=== PATIENT | male | born 1940 | race Caucasian/White ===

== ENCOUNTER 2022-03-20 08:47 | Inpatient (IN) | payer MEDICARE, OTHER ==
[2022-03-20] MEDS ORDERED: Iopamidol 370 76% 100 ML VIAL ONE (08:55)
[2022-03-20] MEDS ORDERED: Morphine 4 MG/ML VIAL ONE (09:15)
[2022-03-20] MEDS ORDERED: Magnesium 2 GM/50 ML BAG (IN WATER) ONE (09:15)
[2022-03-20] MEDS ORDERED: Nitroglycerin 2% Ointment 1 INCH/1 GM Packet ONE (09:15)
[2022-03-20 09:29] LABS: #Lymphocytes 0.5 thou/uL (1.20-3.40); #Monocytes 1.5 thou/uL (0.11-0.59); #Neutrophils 17.5 thou/uL (1.40-6.50); %Basophils 0.2 % (0.0-1.0); %Eosinophils 0.1 % (0.0-10.0); %Lymphocytes 2.5 % (21.0-51.0); %Monocytes 7.6 % (0.0-10.0); %Neutrophils 89.7 % (42.0-75.0); Mean Platelet Volume 8.9 fL (7.4-10.4); Platelet Count 200 thou/uL (130-400); RBC Distribution Width 11.9 % (11.5-14.5); White Blood Cell (WBC) Count 19.5 thou/uL (4.8-10.8)
[2022-03-20] MEDS ORDERED: Diltiazem HCl 0 ML ONE (10:08)
[2022-03-20] MEDS ORDERED: Esmolol 2,500 MG/250 ML 250 ML ONE (10:34)
[2022-03-20 10:55] LABS: ALT (SGPT) 15 U/L (8-55); AST (SGOT) 15 U/L (5-34); Albumin 4.4 g/dL (3.4-4.8); Alkaline Phosphatase 88 U/L (40-110); Anion Gap 20 mmol/L (10-20); BUN (Urea Nitrogen) 16 mg/dL (8.4-25.7); Bilirubin, Total 1.4 mg/dL (0.2-1.2); Calc. Creatinine Clearance 0 mL/min (70-130); Calcium 9.6 mg/dL (7.8-10.44); Carbon Dioxide 23 mmol/L (23-31); Chloride 97 mmol/L (98-107); Globulin 2.6 g/dL (2.4-3.5); Glucose 186 mg/dL (83-110); Lipase 8 U/L (8-78); Potassium 4.2 mmol/L (3.5-5.1); Sodium 136 mmol/L (136-145)
[2022-03-20] MEDS ORDERED: Ondansetron PF 4 MG/2 ML Vial IVP PRN (11:26)
[2022-03-20] MEDS ORDERED: Fentanyl 100 MCG/2 ML VIAL ONE (11:35)
[2022-03-20] MEDS ORDERED: Dextrose 50% Abboject 50 ML SYRINGE SLOW IVP PRN (11:46)
[2022-03-20] MEDS ORDERED: HumaLOG 300 UNITS/3 ML VIAL SC PRN ×2 (11:46)
[2022-03-20] MEDS ORDERED: Dextrose 5% in Water 1,000 ML IV PRN (11:46)
[2022-03-20 12:10] LABS: Hemoglobin A1c 5.8 % (4.0-6.0)
[2022-03-20 12:28] LABS: Troponin I 0.018 ng/mL (< 0.028)
[2022-03-20] MEDS ORDERED: Enoxaparin Sodium 80 MG/0.8 ML SYRINGE ONE (13:20)
[2022-03-20 16:01] VITALS: BMI 24.3
[2022-03-20 16:49] LABS: Troponin I 0.012 ng/mL (< 0.028)
[2022-03-20 18:32] LABS: Bilirubin Negative (Negative); Blood, Urine Trace (Negative); Clarity Clear (Clear); Glucose, Urine (Dipstick) 70 mg/dL (Negative); Ketone, Urine Negative (Negative); Leukocyte Negative Leu/uL (Negative); Nitrite Negative (Negative); Protein, Urine (Dipstick) 30 mg/dL (Neg-Trace); Squamous Epithelial 0-3 HPF (0-3); Urobilinogen Normal mg/dL (Less than 2); WBC/HPF 0-3 HPF (0-3)
[2022-03-20 18:42] LABS: Bacteria/HPF Rare-Few HPF (None Seen); Specific Gravity, Urine Greater than 1.060 (1.002-1.036)
[2022-03-20 18:43] LABS: Urine Culture Reflex No No
[2022-03-20] MEDS: Atorvastatin Calcium 10 MG TAB PO SCH (21:28)
[2022-03-20] MEDS: Metoprolol Tartrate 25 MG TAB PO SCH (21:28)
[2022-03-20] MEDS: Senokot S 8.6-50 MG TAB PO SCH (21:28)
[2022-03-20] MEDS: Famotidine/PF 20 mg/2ml Vial SLOW IVP SCH (21:28)
[2022-03-20] MEDS: Enoxaparin Sodium 80 MG/0.8 ML SYRINGE SC SCH (21:29)
[2022-03-21 00:55] LABS: SARS-CoV-2 PCR by NAA Not Detected (NotDetected)
[2022-03-21 03:57] LABS: #Eosinphils 0.1 thou/uL (0.0-0.7); #Lymphocytes 1.3 thou/uL (1.20-3.40); #Monocytes 1.3 thou/uL (0.11-0.59); #Neutrophils 6.5 thou/uL (1.40-6.50); %Basophils 0.3 % (0.0-1.0); %Eosinophils 0.5 % (0.0-10.0); %Monocytes 14.6 % (0.0-10.0); %Neutrophils 70.6 % (42.0-75.0); Hemoglobin 13.7 g/dL (14.0-18.0); Mean Corpuscular HGB CONC 34.2 g/dL (32.0-36.0); Mean Corpuscular Hemoglobin 34.4 pg (27.0-31.0); Mean Platelet Volume 9.1 fL (7.4-10.4); Platelet Count 145 thou/uL (130-400); Red Blood Cell (RBC) Count 3.99 mill/uL (4.70-6.10); White Blood Cell (WBC) Count 9.2 thou/uL (4.8-10.8)
[2022-03-21 04:08] LABS: ALT (SGPT) 18 U/L (8-55); AST (SGOT) 15 U/L (5-34); Albumin 3.3 g/dL (3.4-4.8); Alkaline Phosphatase 61 U/L (40-110); Anion Gap 9 mmol/L (10-20); BUN (Urea Nitrogen) 20 mg/dL (8.4-25.7); Bilirubin, Direct 0.5 mg/dL (0.1-0.3); Bilirubin, Total 1.2 mg/dL (0.2-1.2); Calc. Creatinine Clearance 64 mL/min (70-130); Calcium 8.6 mg/dL (7.8-10.44); Carbon Dioxide 29 mmol/L (23-31); Cardiac Risk 1.8 (Less than 4.5); Chloride 100 mmol/L (98-107); Cholesterol 102 mg/dl (< 200 Desired); Glucose 106 mg/dL (83-110); HDL Cholesterol 58 mg/dL (>60 Neg Risk); LDL Cholesterol, Calculated 37 mg/dL; Magnesium 2.2 mg/dL (1.6-2.6); Potassium 3.6 mmol/L (3.5-5.1); Protein, Total 5.4 g/dL (5.8-8.1); Sodium 134 mmol/L (136-145); Triglycerides 35 mg/dL (Less than 150)
[2022-03-21] MEDS: Polyethylene Glycol 3350 17 GM Packet PO SCH (09:13)
[2022-03-21] MEDS: Famotidine/PF 20 mg/2ml Vial SLOW IVP SCH ×2 (09:20→21:41)
[2022-03-21] MEDS: Aspirin Chewable 81 MG TAB PO SCH (09:20)
[2022-03-21] MEDS: Enoxaparin Sodium 80 MG/0.8 ML SYRINGE SC SCH ×2 (09:21→21:41)
[2022-03-21] MEDS: Metoprolol Tartrate 25 MG TAB PO SCH ×2 (09:21→21:41)
[2022-03-21] MEDS: Senokot S 8.6-50 MG TAB PO SCH ×2 (09:21→21:41)
[2022-03-21] MEDS ORDERED: Dronedarone HCl 400 MG TAB PO SCH ×2 (10:00→17:00)
[2022-03-21] MEDS ORDERED: Digoxin 0.5 MG/2 ML AMP SLOW IVP SCH ×2 (11:30→17:45)
[2022-03-21] MEDS ORDERED: Amiodarone 450 MG in Dextrose 5% in Water 250 ML IVPB SCH (11:30)
[2022-03-21] MEDS ORDERED: Amiodarone 150 MG in Dextrose 5% in Water 100 ML IVPB SCH (11:30)
[2022-03-21] MEDS ORDERED: Amiodarone 150 MG, Admixture Fee 1 EACH in Dextrose 5% in Water 100 ML IVPB SCH (14:30)
[2022-03-21] MEDS: Amiodarone In Dextrose 200 ML IVPB SCH ×2 (16:02→22:03)
[2022-03-21] MEDS ORDERED: Potassium Chloride 20 MEQ TAB PO SCH (18:45)
[2022-03-21] MEDS: Colchicine 0.6 MG TAB PO SCH (21:41)
[2022-03-21] MEDS: Atorvastatin Calcium 10 MG TAB PO SCH (21:41)
[2022-03-22 03:54] LABS: #Lymphocytes 0.9 thou/uL (1.20-3.40); #Monocytes 1.2 thou/uL (0.11-0.59); %Eosinophils 0.4 % (0.0-10.0); %Lymphocytes 10.9 % (21.0-51.0); %Monocytes 14.6 % (0.0-10.0); %Neutrophils 74.1 % (42.0-75.0); Hemoglobin 13.9 g/dL (14.0-18.0); Mean Corpuscular HGB CONC 33.6 g/dL (32.0-36.0); Mean Corpuscular Hemoglobin 33.5 pg (27.0-31.0); Mean Corpuscular Volume 99.6 fL (78.0-98.0); Mean Platelet Volume 8.8 fL (7.4-10.4); Platelet Count 131 thou/uL (130-400); RBC Distribution Width 11.9 % (11.5-14.5); Red Blood Cell (RBC) Count 4.13 mill/uL (4.70-6.10); White Blood Cell (WBC) Count 8.1 thou/uL (4.8-10.8)
[2022-03-22 04:26] LABS: Anion Gap 12 mmol/L (10-20); BUN (Urea Nitrogen) 17 mg/dL (8.4-25.7); Calc. Creatinine Clearance 61 mL/min (70-130); Calcium 8.6 mg/dL (7.8-10.44); Carbon Dioxide 25 mmol/L (23-31); Chloride 99 mmol/L (98-107); Glucose 138 mg/dL (83-110); Magnesium 2.3 mg/dL (1.6-2.6); Potassium 4.3 mmol/L (3.5-5.1); Sodium 132 mmol/L (136-145)
[2022-03-22 06:35] LABS: Digoxin 1.11 ng/mL (0.8-2.0)
[2022-03-22] MEDS: Budesonide 0.5 MG/2 ML NEB NEB SCH ×2 (07:09→18:22)
[2022-03-22] MEDS: Senokot S 8.6-50 MG TAB PO SCH ×2 (08:42→20:27)
[2022-03-22] MEDS: predniSONE 20 MG TAB PO SCH (08:42)
[2022-03-22] MEDS: Digoxin 0.125 MG TAB PO SCH (08:42)
[2022-03-22] MEDS: Famotidine/PF 20 mg/2ml Vial SLOW IVP SCH ×2 (08:48→20:27)
[2022-03-22] MEDS: Enoxaparin Sodium 80 MG/0.8 ML SYRINGE SC SCH (08:48)
[2022-03-22] MEDS: Metoprolol Tartrate 25 MG TAB PO SCH ×2 (08:48→20:27)
[2022-03-22] MEDS: Polyethylene Glycol 3350 17 GM Packet PO SCH (08:48)
[2022-03-22] MEDS: Aspirin Chewable 81 MG TAB PO SCH (08:48)
[2022-03-22] MEDS: Colchicine 0.6 MG TAB PO SCH ×2 (08:48→20:27)
[2022-03-22] MEDS ORDERED: CATH Communication Order-Pharmacy FS SCH (17:00)
[2022-03-22] MEDS: Amiodarone In Dextrose 200 ML IVPB SCH (20:11)
[2022-03-22] MEDS: Atorvastatin Calcium 10 MG TAB PO SCH (20:27)
[2022-03-23 03:28] LABS: #Eosinphils 0.1 thou/uL (0.0-0.7); #Lymphocytes 1.1 thou/uL (1.20-3.40); #Monocytes 0.9 thou/uL (0.11-0.59); #Neutrophils 5.1 thou/uL (1.40-6.50); %Basophils 0.2 % (0.0-1.0); %Eosinophils 0.8 % (0.0-10.0); %Lymphocytes 15.7 % (21.0-51.0); %Monocytes 12.1 % (0.0-10.0); %Neutrophils 71.1 % (42.0-75.0); Hemoglobin 13.3 g/dL (14.0-18.0); Mean Corpuscular HGB CONC 33.5 g/dL (32.0-36.0); Mean Corpuscular Hemoglobin 33.4 pg (27.0-31.0); Mean Corpuscular Volume 99.9 fL (78.0-98.0); Mean Platelet Volume 8.7 fL (7.4-10.4); Platelet Count 136 thou/uL (130-400); RBC Distribution Width 11.8 % (11.5-14.5); Red Blood Cell (RBC) Count 3.98 mill/uL (4.70-6.10); White Blood Cell (WBC) Count 7.2 thou/uL (4.8-10.8)
[2022-03-23 03:48] LABS: Anion Gap 13 mmol/L (10-20); BUN (Urea Nitrogen) 10 mg/dL (8.4-25.7); Calc. Creatinine Clearance 75 mL/min (70-130); Calcium 8.2 mg/dL (7.8-10.44); Carbon Dioxide 25 mmol/L (23-31); Chloride 101 mmol/L (98-107); Glucose 119 mg/dL (83-110); Magnesium 2.2 mg/dL (1.6-2.6); Potassium 3.5 mmol/L (3.5-5.1); Sodium 135 mmol/L (136-145)
[2022-03-23] MEDS ORDERED: Sodium Chloride 0.9% 1,000 ML IV SCH ×2 (06:00→12:28)
[2022-03-23] MEDS: Budesonide 0.5 MG/2 ML NEB NEB SCH ×2 (06:15→18:21)
[2022-03-23] MEDS: Metoprolol Tartrate 25 MG TAB PO SCH (07:29)
[2022-03-23] MEDS: Digoxin 0.125 MG TAB PO SCH (10:26)
[2022-03-23] MEDS ORDERED: Heparin 10,000 UNITS/ 10 ML VIAL ONE (11:47)
[2022-03-23] MEDS ORDERED: Fentanyl 100 MCG/2 ML VIAL ONE (11:48)
[2022-03-23] MEDS ORDERED: Midazolam HCl 2 mg/2 ml Vial ONE (11:48)
[2022-03-23] MEDS ORDERED: Metoprolol Tartrate 5 MG/5 ML VIAL ONE (11:56)
[2022-03-23] MEDS ORDERED: Diltiazem 125 MG/25 ML ONE (11:57)
[2022-03-23] MEDS ORDERED: Protamine Sulfate 50 MG/5 ML VIAL ONE (12:08)
[2022-03-23] MEDS ORDERED: Sodium Chloride 0.9% 200 ML IV PRN (12:26)
[2022-03-23] MEDS ORDERED: Acetaminophen/Codeine 30-300mg Tablet PO PRN ×2 (12:26)
[2022-03-23] MEDS ORDERED: Nitroglycerin 0.4 MG TAB (25 Tab Bottle) SL PRN (12:26)
[2022-03-23] MEDS ORDERED: Acetaminophen 325 MG TAB PO PRN (12:27)
[2022-03-23] MEDS ORDERED: Diltiazem 125 MG in Sodium Chloride 0.9% 100 ML IVPB SCH (12:30)
[2022-03-23] MEDS ORDERED: Diltiazem HCl 125 MG in Premix Bag 1 BAG IVPB SCH (13:15)
[2022-03-23] MEDS: Famotidine/PF 20 mg/2ml Vial SLOW IVP SCH ×2 (13:54→20:27)
[2022-03-23] MEDS: Colchicine 0.6 MG TAB PO SCH ×2 (13:55→20:27)
[2022-03-23] MEDS: predniSONE 20 MG TAB PO SCH (13:55)
[2022-03-23] MEDS: Senokot S 8.6-50 MG TAB PO SCH ×2 (13:55→20:27)
[2022-03-23] MEDS: Polyethylene Glycol 3350 17 GM Packet PO SCH (13:55)
[2022-03-23] MEDS: Aspirin Chewable 81 MG TAB PO SCH (13:55)
[2022-03-23] MEDS ORDERED: Iopamidol 370 76% 100 ML VIAL ONE (14:32)
[2022-03-23] MEDS ORDERED: Iopamidol 370 76% 50 ML VIAL FS ONE (14:32)
[2022-03-23] MEDS: Potassium Chloride 20 MEQ in Premix Bag 1 BAG IVPB SCH ×2 (17:16→19:02)
[2022-03-23] MEDS: Amiodarone In Dextrose 200 ML IVPB SCH (20:26)
[2022-03-23] MEDS: Atorvastatin Calcium 10 MG TAB PO SCH (20:27)
[2022-03-23] MEDS ORDERED: Furosemide 40 MG/4 ML VIAL SLOW IVP SCH (21:30)
[2022-03-23] MEDS ORDERED: methylPREDNISolone Sod Succ/PF 125 MG/2 ML VIAL IVP SCH (22:45)
[2022-03-24 04:01] LABS: #Lymphocytes 0.2 thou/uL (1.20-3.40); #Monocytes 0.3 thou/uL (0.11-0.59); #Neutrophils 7.6 thou/uL (1.40-6.50); %Basophils 0.4 % (0.0-1.0); %Eosinophils 0.1 % (0.0-10.0); %Lymphocytes 2.9 % (21.0-51.0); %Monocytes 3.2 % (0.0-10.0); %Neutrophils 93.3 % (42.0-75.0); Hemoglobin 15.6 g/dL (14.0-18.0); Mean Corpuscular HGB CONC 32.5 g/dL (32.0-36.0); Mean Corpuscular Hemoglobin 32.8 pg (27.0-31.0); Mean Platelet Volume 8.4 fL (7.4-10.4); Platelet Count 188 thou/uL (130-400); Red Blood Cell (RBC) Count 4.74 mill/uL (4.70-6.10); White Blood Cell (WBC) Count 8.1 thou/uL (4.8-10.8)
[2022-03-24 04:27] LABS: Anion Gap 15 mmol/L (10-20); BUN (Urea Nitrogen) 15 mg/dL (8.4-25.7); Calc. Creatinine Clearance 57 mL/min (70-130); Carbon Dioxide 27 mmol/L (23-31); Chloride 99 mmol/L (98-107); Glucose 222 mg/dL (83-110); Magnesium 2.1 mg/dL (1.6-2.6); Potassium 4.6 mmol/L (3.5-5.1); Sodium 136 mmol/L (136-145)
[2022-03-24 05:18] LABS: Digoxin 0.81 ng/mL (0.8-2.0)
[2022-03-24] MEDS: Budesonide 0.5 MG/2 ML NEB NEB SCH ×2 (07:10→19:29)
[2022-03-24] MEDS: Amiodarone 200 MG TAB PO SCH ×2 (08:59→20:54)
[2022-03-24] MEDS: Aspirin Chewable 81 MG TAB PO SCH (09:00)
[2022-03-24] MEDS: Apixaban 5 MG TAB PO SCH ×2 (09:00→20:53)
[2022-03-24] MEDS: Digoxin 0.125 MG TAB PO SCH (09:00)
[2022-03-24] MEDS: Colchicine 0.6 MG TAB PO SCH ×2 (09:00→20:54)
[2022-03-24] MEDS: Famotidine/PF 20 mg/2ml Vial SLOW IVP SCH ×2 (09:00→20:54)
[2022-03-24] MEDS: predniSONE 20 MG TAB PO SCH (09:01)
[2022-03-24] MEDS: Polyethylene Glycol 3350 17 GM Packet PO SCH (09:01)
[2022-03-24] MEDS: Senokot S 8.6-50 MG TAB PO SCH ×2 (09:02→20:55)
[2022-03-24] MEDS: Amiodarone In Dextrose 200 ML IVPB SCH (09:06)
[2022-03-24] MEDS ORDERED: Ketamine 50 MG/ML (10ML VIAL) ONE (11:39)
[2022-03-24] MEDS ORDERED: PROPOFOL 20 ML ONE (11:40)
[2022-03-24] MEDS: Carvedilol 3.125 MG TAB PO SCH (17:24)
[2022-03-24] MEDS: Atorvastatin Calcium 10 MG TAB PO SCH (20:54)
[2022-03-25 04:37] LABS: #Monocytes 1.1 thou/uL (0.11-0.59); #Neutrophils 8.1 thou/uL (1.40-6.50); %Basophils 0.1 % (0.0-1.0); %Eosinophils 0.2 % (0.0-10.0); %Lymphocytes 9.7 % (21.0-51.0); %Neutrophils 79.1 % (42.0-75.0); Hemoglobin 14.5 g/dL (14.0-18.0); Mean Corpuscular HGB CONC 33.6 g/dL (32.0-36.0); Mean Corpuscular Hemoglobin 33.4 pg (27.0-31.0); Mean Corpuscular Volume 99.5 fL (78.0-98.0); Mean Platelet Volume 8.5 fL (7.4-10.4); Platelet Count 178 thou/uL (130-400); RBC Distribution Width 11.6 % (11.5-14.5); Red Blood Cell (RBC) Count 4.36 mill/uL (4.70-6.10); White Blood Cell (WBC) Count 10.2 thou/uL (4.8-10.8)
[2022-03-25 04:58] LABS: Anion Gap 12 mmol/L (10-20); BUN (Urea Nitrogen) 18 mg/dL (8.4-25.7); Calc. Creatinine Clearance 61 mL/min (70-130); Calcium 8.6 mg/dL (7.8-10.44); Carbon Dioxide 28 mmol/L (23-31); Chloride 101 mmol/L (98-107); Glucose 143 mg/dL (83-110); Magnesium 2.1 mg/dL (1.6-2.6); Potassium 4.1 mmol/L (3.5-5.1); Sodium 137 mmol/L (136-145)
[2022-03-25] MEDS: Budesonide 0.5 MG/2 ML NEB NEB SCH ×2 (06:55→18:11)
[2022-03-25] MEDS: Colchicine 0.6 MG TAB PO SCH ×2 (08:38→22:28)
[2022-03-25] MEDS: Carvedilol 3.125 MG TAB PO SCH ×2 (08:38→17:00)
[2022-03-25] MEDS: Senokot S 8.6-50 MG TAB PO SCH ×2 (08:38→22:29)
[2022-03-25] MEDS: Furosemide 20 MG TAB PO SCH (08:38)
[2022-03-25] MEDS: Amiodarone 200 MG TAB PO SCH ×2 (08:39→22:27)
[2022-03-25] MEDS: Apixaban 5 MG TAB PO SCH ×2 (08:39→22:28)
[2022-03-25] MEDS: Aspirin Chewable 81 MG TAB PO SCH (08:39)
[2022-03-25] MEDS: predniSONE 20 MG TAB PO SCH (08:40)
[2022-03-25] MEDS: Famotidine/PF 20 mg/2ml Vial SLOW IVP SCH ×2 (08:40→22:28)
[2022-03-25] MEDS: Polyethylene Glycol 3350 17 GM Packet PO SCH (08:40)
[2022-03-25] MEDS ORDERED: Metoprolol Tartrate 5 MG/5 ML VIAL IVP SCH (09:45)
[2022-03-25] MEDS ORDERED: Digoxin 0.5 MG/2 ML AMP SLOW IVP SCH (10:00)
[2022-03-25] MEDS: Atorvastatin Calcium 10 MG TAB PO SCH (22:28)
[2022-03-26 05:08] LABS: #Lymphocytes 1.2 thou/uL (1.20-3.40); #Monocytes 1.2 thou/uL (0.11-0.59); #Neutrophils 6.5 thou/uL (1.40-6.50); %Basophils 0.1 % (0.0-1.0); %Eosinophils 0.4 % (0.0-10.0); %Lymphocytes 13.8 % (21.0-51.0); %Monocytes 13.2 % (0.0-10.0); %Neutrophils 72.5 % (42.0-75.0); Hemoglobin 14.8 g/dL (14.0-18.0); Mean Corpuscular HGB CONC 33.2 g/dL (32.0-36.0); Mean Corpuscular Hemoglobin 33.3 pg (27.0-31.0); Mean Platelet Volume 8.3 fL (7.4-10.4); Platelet Count 189 thou/uL (130-400); RBC Distribution Width 11.8 % (11.5-14.5); Red Blood Cell (RBC) Count 4.45 mill/uL (4.70-6.10)
[2022-03-26 05:14] LABS: Anion Gap 11 mmol/L (10-20); BUN (Urea Nitrogen) 21 mg/dL (8.4-25.7); Calc. Creatinine Clearance 60 mL/min (70-130); Calcium 8.1 mg/dL (7.8-10.44); Carbon Dioxide 28 mmol/L (23-31); Chloride 103 mmol/L (98-107); Glucose 172 mg/dL (83-110); Potassium 3.9 mmol/L (3.5-5.1); Sodium 138 mmol/L (136-145)
[2022-03-26] MEDS: Budesonide 0.5 MG/2 ML NEB NEB SCH (07:32)
[2022-03-26] MEDS ORDERED: Digoxin 0.125 MG TAB PO SCH (09:00)
[2022-03-26] MEDS: Furosemide 20 MG TAB PO SCH (10:03)
[2022-03-26] MEDS: Carvedilol 3.125 MG TAB PO SCH (10:03)
[2022-03-26] MEDS: Aspirin Chewable 81 MG TAB PO SCH (10:03)
[2022-03-26] MEDS: predniSONE 20 MG TAB PO SCH (10:03)
[2022-03-26] MEDS: Famotidine/PF 20 mg/2ml Vial SLOW IVP SCH (10:03)
[2022-03-26] MEDS: Polyethylene Glycol 3350 17 GM Packet PO SCH (10:04)
[2022-03-26] MEDS: Amiodarone 200 MG TAB PO SCH (10:04)
[2022-03-26] MEDS: Colchicine 0.6 MG TAB PO SCH (10:04)
[2022-03-26] MEDS: Apixaban 5 MG TAB PO SCH (10:04)
[2022-03-26] MEDS: Senokot S 8.6-50 MG TAB PO SCH (10:05)
[2022-03-26 11:36] VITALS: BP 177/83; TEMP 97.8
[2022-04-07] MEDS ORDERED: Amiodarone 200 MG TAB PO SCH (09:00)
[2022-04-21] MEDS ORDERED: Amiodarone 200 MG TAB PO SCH (09:00)
== END 2022-03-26 11:45 | disposition home or self-care (01) | DRG 286 ==
LOC: ERS 08:47 → IMCU/EMU 11:31 → 2NO 03-24 18:52
PROVIDERS: ADMIT Family Medicine; ATTEND Internal Medicine Geriatric Medicine
PROC: 5A2204Z Restoration of Cardiac Rhythm, Single (ICD-10-PCS; 2022-03-20)
PROC: 4A023N7 Measurement of Cardiac Sampling and Pressure, Left Heart, Percutaneous Approach (ICD-10-PCS; 2022-03-21)
PROC: B2111ZZ Fluoroscopy of Multiple Coronary Arteries using Low Osmolar Contrast (ICD-10-PCS; 2022-03-21)
PROC: B2151ZZ Fluoroscopy of Left Heart using Low Osmolar Contrast (ICD-10-PCS; 2022-03-21)
PROC: B24BZZ4 Ultrasonography of Heart with Aorta, Transesophageal (ICD-10-PCS; principal; 2022-03-24)
DX: I48.92 Unspecified atrial flutter (principal); I50.21 Acute systolic (congestive) heart failure; I13.0 Hypertensive heart and chronic kidney disease with heart failure and stage 1 through stage 4 chronic kidney disease, or unspecified chronic kidney disease; E87.1 Hypo-osmolality and hyponatremia; I42.8 Other cardiomyopathies; I25.10 Atherosclerotic heart disease of native coronary artery without angina pectoris; I48.91 Unspecified atrial fibrillation; E04.1 Nontoxic single thyroid nodule; E78.00 Pure hypercholesterolemia, unspecified; I25.5 Ischemic cardiomyopathy; I95.9 Hypotension, unspecified; N18.30 Chronic kidney disease, stage 3 unspecified; N40.0 Benign prostatic hyperplasia without lower urinary tract symptoms; F17.210 Nicotine dependence, cigarettes, uncomplicated; J43.9 Emphysema, unspecified; D72.829 Elevated white blood cell count, unspecified; E11.22 Type 2 diabetes mellitus with diabetic chronic kidney disease; I08.3 Combined rheumatic disorders of mitral, aortic and tricuspid valves; K76.1 Chronic passive congestion of liver; Z20.822 Contact with and (suspected) exposure to COVID-19; Z71.6 Tobacco abuse counseling; Z72.89 Other problems related to lifestyle; Z79.899 Other long term (current) drug therapy; Z79.84 Long term (current) use of oral hypoglycemic drugs; Z79.01 Long term (current) use of anticoagulants; Z79.82 Long term (current) use of aspirin
CPT/HCPCS: 36415; 36416; 71045; 71275; 74174; 78451; 80048; 80053; 80061; 80076; 80162; 81001; 83036; 83605; 83690; 83735; 83880; 84443; 84484; 85025; 85347; 85379; 87040; 92960; 93005; 93010; 93306; 93312; 93458; 94640; 94660; 94760; 96365; 96367; 96372; 96375; 97139; 99152; A9500; J0282; J1160; J1644; J1650; J1815; J1940; J2250; J2270; J2704; J2720; J2930; J3010; J3475; J3480; J7050; J7070; J7512; J7620; J7626; Q9967; S0028; U0003; U0005

== ENCOUNTER 2022-04-07 13:28 | Inpatient (IN) | payer OTHER ==
[~2022-04-07 13:28] MED LIST: Iopamidol-370 76% 500 ML 1 ML ONE
[2022-04-07 14:10] LABS: #Eosinphils 0.1 thou/uL (0.0-0.7); #Lymphocytes 1.1 thou/uL (1.20-3.40); #Monocytes 0.8 thou/uL (0.11-0.59); #Neutrophils 8.4 thou/uL (1.40-6.50); %Basophils 0.3 % (0.0-1.0); %Eosinophils 0.6 % (0.0-10.0); %Lymphocytes 10.3 % (21.0-51.0); %Monocytes 7.7 % (0.0-10.0); Hemoglobin 14.6 g/dL (14.0-18.0); Mean Corpuscular HGB CONC 32.9 g/dL (32.0-36.0); Mean Corpuscular Hemoglobin 33.4 pg (27.0-31.0); Mean Platelet Volume 8.9 fL (7.4-10.4); Platelet Count 189 thou/uL (130-400); RBC Distribution Width 12.1 % (11.5-14.5); Red Blood Cell (RBC) Count 4.37 mill/uL (4.70-6.10); White Blood Cell (WBC) Count 10.4 thou/uL (4.8-10.8)
[2022-04-07 14:25] LABS: ALT (SGPT) 16 U/L (8-55); AST (SGOT) 16 U/L (5-34); Albumin 3.3 g/dL (3.4-4.8); Alkaline Phosphatase 94 U/L (40-110); Anion Gap 12 mmol/L (10-20); BUN (Urea Nitrogen) 14 mg/dL (8.4-25.7); Calc. Creatinine Clearance 0 mL/min (70-130); Calcium 8.5 mg/dL (7.8-10.44); Carbon Dioxide 36 mmol/L (23-31); Chloride 96 mmol/L (98-107); Globulin 1.9 g/dL (2.4-3.5); Glucose 139 mg/dL (83-110); Potassium 3.3 mmol/L (3.5-5.1); Protein, Total 5.2 g/dL (5.8-8.1); Sodium 141 mmol/L (136-145)
[2022-04-07] MEDS ORDERED: Potassium Chloride 20 MEQ TAB ONE (14:35)
[2022-04-07] MEDS ORDERED: Amiodarone 200 MG TAB PO SCH (14:45)
[2022-04-07 14:46] LABS: CKMB 3.4 ng/mL (0-6.6)
[2022-04-07] MEDS ORDERED: Apixaban 5 MG TAB PO SCH (15:45)
[2022-04-07] MEDS ORDERED: Furosemide 20 MG/2 ML VIAL ONE (16:36)
[2022-04-07] MEDS ORDERED: Calcium Carbonate 500 MG ChewTAB PO PRN (18:24)
[2022-04-07] MEDS ORDERED: Senokot S 8.6-50 MG TAB PO PRN (18:24)
[2022-04-07] MEDS ORDERED: Acetaminophen 325 MG TAB PO PRN (18:24)
[2022-04-07] MEDS ORDERED: Albuterol 200 PUFF (6.7GM INHALER) INH PRN (18:41)
[2022-04-07 23:09] VITALS: BMI 23.8
[2022-04-08 04:07] LABS: #Basophils 0.1 thou/uL (0.0-0.2); #Eosinphils 0.1 thou/uL (0.0-0.7); #Lymphocytes 1.2 thou/uL (1.20-3.40); #Monocytes 0.8 thou/uL (0.11-0.59); #Neutrophils 7.6 thou/uL (1.40-6.50); %Basophils 0.5 % (0.0-1.0); %Eosinophils 1.2 % (0.0-10.0); %Lymphocytes 12.5 % (21.0-51.0); %Monocytes 7.7 % (0.0-10.0); %Neutrophils 78.1 % (42.0-75.0); Hemoglobin 13.7 g/dL (14.0-18.0); Mean Corpuscular HGB CONC 34.6 g/dL (32.0-36.0); Mean Corpuscular Hemoglobin 33.8 pg (27.0-31.0); Mean Corpuscular Volume 97.8 fL (78.0-98.0); Mean Platelet Volume 8.3 fL (7.4-10.4); Platelet Count 184 thou/uL (130-400); RBC Distribution Width 12.3 % (11.5-14.5); Red Blood Cell (RBC) Count 4.06 mill/uL (4.70-6.10); White Blood Cell (WBC) Count 9.7 thou/uL (4.8-10.8)
[2022-04-08 04:16] LABS: Anion Gap 11 mmol/L (10-20); BUN (Urea Nitrogen) 14 mg/dL (8.4-25.7); Calc. Creatinine Clearance 59 mL/min (70-130); Calcium 8.4 mg/dL (7.8-10.44); Carbon Dioxide 35 mmol/L (23-31); Chloride 98 mmol/L (98-107); Glucose 146 mg/dL (83-110); Potassium 3.2 mmol/L (3.5-5.1); Sodium 141 mmol/L (136-145)
[2022-04-08 04:21] LABS: Troponin I 0.048 ng/mL (< 0.028)
[2022-04-08] MEDS: Furosemide 20 MG/2 ML VIAL SLOW IVP SCH ×2 (05:22→15:23)
[2022-04-08] MEDS: Mometasone 200 MCG/Formoterol 5 MCG 120 PUFF INHALER INH SCH ×2 (07:03→18:32)
[2022-04-08] MEDS ORDERED: Electrolyte Replacement Protocol 1 EACH FS SCH (08:15)
[2022-04-08] MEDS ORDERED: Potassium Chloride 20 MEQ TAB PO SCH ×2 (08:15→09:15)
[2022-04-08 08:35] LABS: Troponin I 0.046 ng/mL (< 0.028)
[2022-04-08] MEDS ORDERED: Magnesium 2 GM/50 ML(in water) 2 GM in Premix Bag 1 BAG IVPB SCH (09:15)
[2022-04-08] MEDS: Apixaban 5 MG TAB PO SCH ×2 (10:17→21:25)
[2022-04-08] MEDS: Amiodarone 200 MG TAB PO SCH (10:18)
[2022-04-08 14:34] LABS: Potassium 3.7 mmol/L (3.5-5.1)
[2022-04-09] MEDS: Furosemide 20 MG/2 ML VIAL SLOW IVP SCH ×2 (05:24→13:49)
[2022-04-09 05:32] LABS: Anion Gap 10 mmol/L (10-20); BUN (Urea Nitrogen) 12 mg/dL (8.4-25.7); Calc. Creatinine Clearance 66 mL/min (70-130); Calcium 8.6 mg/dL (7.8-10.44); Carbon Dioxide 36 mmol/L (23-31); Chloride 97 mmol/L (98-107); Glucose 131 mg/dL (83-110); Magnesium 2.1 mg/dL (1.6-2.6); Potassium 3.2 mmol/L (3.5-5.1); Sodium 140 mmol/L (136-145)
[2022-04-09] MEDS: Mometasone 200 MCG/Formoterol 5 MCG 120 PUFF INHALER INH SCH ×2 (06:53→18:16)
[2022-04-09] MEDS ORDERED: Potassium Chloride 20 MEQ TAB PO SCH (08:00)
[2022-04-09] MEDS: Apixaban 5 MG TAB PO SCH ×2 (08:15→19:49)
[2022-04-09] MEDS: Amiodarone 200 MG TAB PO SCH (08:16)
[2022-04-10 05:30] LABS: #Basophils 0.1 thou/uL (0.0-0.2); #Eosinphils 0.1 thou/uL (0.0-0.7); #Lymphocytes 1.5 thou/uL (1.20-3.40); #Monocytes 0.8 thou/uL (0.11-0.59); %Basophils 0.6 % (0.0-1.0); %Eosinophils 1.7 % (0.0-10.0); %Lymphocytes 18.1 % (21.0-51.0); %Monocytes 9.5 % (0.0-10.0); %Neutrophils 70.2 % (42.0-75.0); Hemoglobin 14.3 g/dL (14.0-18.0); Mean Corpuscular HGB CONC 32.3 g/dL (32.0-36.0); Mean Corpuscular Hemoglobin 32.8 pg (27.0-31.0); Mean Platelet Volume 8.4 fL (7.4-10.4); Platelet Count 184 thou/uL (130-400); RBC Distribution Width 12.1 % (11.5-14.5); Red Blood Cell (RBC) Count 4.38 mill/uL (4.70-6.10); White Blood Cell (WBC) Count 8.5 thou/uL (4.8-10.8)
[2022-04-10 05:54] LABS: Anion Gap 10 mmol/L (10-20); BUN (Urea Nitrogen) 12 mg/dL (8.4-25.7); Calc. Creatinine Clearance 57 mL/min (70-130); Calcium 8.6 mg/dL (7.8-10.44); Carbon Dioxide 37 mmol/L (23-31); Chloride 96 mmol/L (98-107); Glucose 114 mg/dL (83-110); Potassium 3.2 mmol/L (3.5-5.1); Sodium 140 mmol/L (136-145)
[2022-04-10] MEDS: Furosemide 20 MG/2 ML VIAL SLOW IVP SCH ×2 (05:59→13:37)
[2022-04-10] MEDS: Mometasone 200 MCG/Formoterol 5 MCG 120 PUFF INHALER INH SCH ×2 (07:26→18:30)
[2022-04-10] MEDS ORDERED: Potassium Chloride 20 MEQ TAB PO SCH ×2 (08:00→17:00)
[2022-04-10] MEDS: Amiodarone 200 MG TAB PO SCH (08:46)
[2022-04-10] MEDS: Apixaban 5 MG TAB PO SCH ×2 (08:46→09:27)
[2022-04-10] MEDS ORDERED: Enoxaparin Sodium 80 MG/0.8 ML SYRINGE SC SCH (18:00)
[2022-04-11 05:51] LABS: Anion Gap 14 mmol/L (10-20); BUN (Urea Nitrogen) 14 mg/dL (8.4-25.7); Calc. Creatinine Clearance 52 mL/min (70-130); Calcium 8.2 mg/dL (7.8-10.44); Carbon Dioxide 33 mmol/L (23-31); Chloride 96 mmol/L (98-107); Glucose 120 mg/dL (83-110); Magnesium 1.8 mg/dL (1.6-2.6); Potassium 3.7 mmol/L (3.5-5.1); Sodium 139 mmol/L (136-145)
[2022-04-11] MEDS: Mometasone 200 MCG/Formoterol 5 MCG 120 PUFF INHALER INH SCH (07:08)
[2022-04-11] MEDS ORDERED: Magnesium 2 GM/50 ML(in water) 2 GM in Premix Bag 1 BAG IVPB SCH (08:00)
[2022-04-11] MEDS ORDERED: Carvedilol 3.125 MG TAB PO SCH (08:00)
[2022-04-11] MEDS: Amiodarone 200 MG TAB PO SCH (08:19)
[2022-04-11] MEDS ORDERED: Heparin 10,000 UNITS/ 10 ML VIAL ONE (09:38)
[2022-04-11] MEDS ORDERED: Protamine Sulfate 50 MG/5 ML VIAL ONE (09:38)
[2022-04-11] MEDS ORDERED: Lidocaine 1% (PF) 30 ML VIAL ONE (09:45)
[2022-04-11] MEDS ORDERED: Fentanyl 100 MCG/2 ML VIAL ONE (10:10)
[2022-04-11] MEDS ORDERED: Rocuronium Bromide 10 MG/ML (10ML VIAL) ONE (10:15)
[2022-04-11] MEDS ORDERED: PHENYLEPHRINE-NS 100 MCG/ML 10 ML SYRINGE ONE (10:15)
[2022-04-11] MEDS ORDERED: Ondansetron PF 4 MG/2 ML Vial ONE (10:15)
[2022-04-11] MEDS ORDERED: Glycopyrrolate 0.2 MG/ML 5 ML SYRINGE ONE (10:15)
[2022-04-11] MEDS ORDERED: Ketorolac Tromethamine 30 MG/ML VIAL ONE (10:15)
[2022-04-11] MEDS ORDERED: Esmolol 100 MG/10 ML VIAL ONE (10:15)
[2022-04-11] MEDS ORDERED: Phenylephrine 10 MG/ML VIAL ONE (10:31)
[2022-04-11 15:20] VITALS: TEMP 97.9
[2022-04-11 15:48] VITALS: BP 129/73
[2022-04-11] MEDS ORDERED: Apixaban 5 MG TAB PO SCH (21:00)
== END 2022-04-11 15:10 | disposition home or self-care (01) | DRG 273 ==
LOC: ERS 13:28 → 2SW 16:17 → OBSVTOIN 04-08 10:43
PROVIDERS: ADMIT Internal Medicine; ATTEND Internal Medicine
PROC: 02583ZZ Destruction of Conduction Mechanism, Percutaneous Approach (ICD-10-PCS; principal; 2022-04-11)
PROC: 4A023FZ Measurement of Cardiac Rhythm, Percutaneous Approach (ICD-10-PCS; 2022-04-11)
PROC: 4A0234Z Measurement of Cardiac Electrical Activity, Percutaneous Approach (ICD-10-PCS; 2022-04-11)
PROC: 02K83ZZ Map Conduction Mechanism, Percutaneous Approach (ICD-10-PCS; 2022-04-11)
DX: I48.3 Typical atrial flutter (principal); I50.43 Acute on chronic combined systolic (congestive) and diastolic (congestive) heart failure; I31.3 Pericardial effusion (noninflammatory); I11.0 Hypertensive heart disease with heart failure; Z20.822 Contact with and (suspected) exposure to COVID-19; I25.10 Atherosclerotic heart disease of native coronary artery without angina pectoris; J44.9 Chronic obstructive pulmonary disease, unspecified; E11.9 Type 2 diabetes mellitus without complications; F17.210 Nicotine dependence, cigarettes, uncomplicated; E87.6 Hypokalemia; E83.42 Hypomagnesemia; N40.0 Benign prostatic hyperplasia without lower urinary tract symptoms; I48.0 Paroxysmal atrial fibrillation; E04.1 Nontoxic single thyroid nodule; F17.220 Nicotine dependence, chewing tobacco, uncomplicated; Z79.899 Other long term (current) drug therapy; Z79.01 Long term (current) use of anticoagulants; Z98.890 Other specified postprocedural states
CPT/HCPCS: 36415; 36416; 71045; 71275; 80048; 80053; 82553; 83735; 83880; 84484; 85025; 85379; 93005; 93306; 93312; 93613; 93653; 93662; 93798; 94760; 96374; 96375; 96376; C1731; C1732; C1759; C1894; G0378; J1644; J1650; J1940; J2001; J2370; J2720; J3010; J3475; Q9967; U0003; U0005

== ENCOUNTER 2022-07-12 11:14 | Inpatient (IN) | payer MEDICARE, OTHER ==
[2022-07-12 12:27] LABS: #Basophils 0.1 thou/uL (0.0-0.2); #Eosinphils 0.1 thou/uL (0.0-0.7); #Lymphocytes 1.1 thou/uL (1.20-3.40); #Monocytes 0.9 thou/uL (0.11-0.59); %Basophils 0.7 % (0.0-1.0); %Eosinophils 0.8 % (0.0-10.0); %Lymphocytes 15.7 % (21.0-51.0); %Monocytes 12.4 % (0.0-10.0); %Neutrophils 70.3 % (42.0-75.0); Hemoglobin 16.9 g/dL (14.0-18.0); Mean Corpuscular HGB CONC 34.2 g/dL (32.0-36.0); Mean Corpuscular Hemoglobin 33.7 pg (27.0-31.0); Mean Corpuscular Volume 98.7 fL (78.0-98.0); Mean Platelet Volume 9.5 fL (7.4-10.4); Platelet Count 174 thou/uL (130-400); RBC Distribution Width 12.9 % (11.5-14.5); Red Blood Cell (RBC) Count 5.02 mill/uL (4.70-6.10); White Blood Cell (WBC) Count 7.2 thou/uL (4.8-10.8)
[2022-07-12 12:32] LABS: ALT (SGPT) 11 U/L (8-55); AST (SGOT) 21 U/L (5-34); Albumin 3.9 g/dL (3.4-4.8); Alkaline Phosphatase 100 U/L (40-110); Anion Gap 13 mmol/L (10-20); BUN (Urea Nitrogen) 17 mg/dL (8.4-25.7); Bilirubin, Total 0.6 mg/dL (0.2-1.2); Calc. Creatinine Clearance 0 mL/min (70-130); Calcium 9.2 mg/dL (7.8-10.44); Carbon Dioxide 33 mmol/L (23-31); Chloride 99 mmol/L (98-107); Estimated GFR 53; Globulin 2.3 g/dL (2.4-3.5); Glucose 120 mg/dL (83-110); Lipase 11 U/L (8-78); Protein, Total 6.2 g/dL (5.8-8.1); Sodium 141 mmol/L (136-145)
[2022-07-12] MEDS ORDERED: Aspirin 325 MG TAB ONE (13:19)
[2022-07-12] MEDS ORDERED: Furosemide 40 MG/4 ML VIAL ONE (13:19)
[2022-07-12 13:39] LABS: CKMB 7.8 ng/mL (0-6.6)
[2022-07-12 14:47] LABS: Acetaminophen Less than 10.0 mcg/mL (10.0-30.0); Alcohol Less than 10 mg/dL (Less than 10); Salicylate Less than 8.0 mg/dL (15.0-30.0)
[2022-07-12 15:02] LABS: Amphetamine Not Detected (NotDetected); Barbiturates Screen Not Detected (NotDetected); Benzodiazepine Screen Not Detected (NotDetected); Cocaine Metabolite Screen Not Detected (NotDetected); Methadone Not Detected (NotDetected); Methamphetamine Not Detected (NotDetected); Opiate Screen Not Detected (NotDetected); Oxycodone Screen Not Detected (NotDetected); Phencyclidine (PCP) Not Detected (NotDetected); THC/Cannabinoid Screen Not Detected (NotDetected); Tricyclic Screen Not Detected (NotDetected)
[2022-07-12 16:13] LABS: Troponin I 0.262 ng/mL (< 0.028)
[2022-07-12 16:41] VITALS: BMI 23.8
[2022-07-12] MEDS ORDERED: Acetaminophen 325 MG TAB PO PRN ×2 (16:45→17:55)
[2022-07-12] MEDS ORDERED: Ondansetron PF 4 MG/2 ML Vial IVP PRN (16:45)
[2022-07-12] MEDS ORDERED: Ondansetron ODT 4 MG TAB SL PRN (16:45)
[2022-07-12] MEDS: Carvedilol 3.125 MG TAB PO SCH (18:18)
[2022-07-12] MEDS: Nicotine 14 MG PATCH TD SCH (18:18)
[2022-07-12 18:31] LABS: Anion Gap 15 mmol/L (10-20); BUN (Urea Nitrogen) 16 mg/dL (8.4-25.7); Calc. Creatinine Clearance 51 mL/min (70-130); Calcium 9.3 mg/dL (7.8-10.44); Carbon Dioxide 31 mmol/L (23-31); Chloride 99 mmol/L (98-107); Estimated GFR 57; Glucose 135 mg/dL (83-110); Potassium 3.8 mmol/L (3.5-5.1); Sodium 141 mmol/L (136-145)
[2022-07-12 18:31] LABS: Troponin I 0.338 ng/mL (< 0.028)
[2022-07-12] MEDS ORDERED: Amiodarone 150 MG in Dextrose 5% in Water 100 ML IVPB SCH (19:00)
[2022-07-12] MEDS: Apixaban 5 MG TAB PO SCH (20:13)
[2022-07-12] MEDS: Atorvastatin Calcium 10 MG TAB PO SCH (20:14)
[2022-07-12 20:30] LABS: ALT (SGPT) 12 U/L (8-55); AST (SGOT) 34 U/L (5-34); Albumin 3.9 g/dL (3.4-4.8); Alkaline Phosphatase 91 U/L (40-110); Bilirubin, Direct 0.2 mg/dL (0.1-0.3); Bilirubin, Total 0.8 mg/dL (0.2-1.2); Magnesium 2.2 mg/dL (1.6-2.6); Protein, Total 6.5 g/dL (5.8-8.1)
[2022-07-12] MEDS: Amiodarone 450 MG in Dextrose 5% in Water 250 ML IVPB SCH (21:48)
[2022-07-13 04:28] LABS: #Eosinphils 0.2 thou/uL (0.0-0.7); #Lymphocytes 1.7 thou/uL (1.20-3.40); #Monocytes 0.8 thou/uL (0.11-0.59); #Neutrophils 3.9 thou/uL (1.40-6.50); %Basophils 0.7 % (0.0-1.0); %Eosinophils 2.8 % (0.0-10.0); %Lymphocytes 25.3 % (21.0-51.0); %Monocytes 12.6 % (0.0-10.0); %Neutrophils 58.6 % (42.0-75.0); Hemoglobin 16.3 g/dL (14.0-18.0); Mean Corpuscular HGB CONC 34.3 g/dL (32.0-36.0); Mean Corpuscular Hemoglobin 33.8 pg (27.0-31.0); Mean Corpuscular Volume 98.5 fL (78.0-98.0); Mean Platelet Volume 9.3 fL (7.4-10.4); Platelet Count 168 thou/uL (130-400); RBC Distribution Width 12.7 % (11.5-14.5); Red Blood Cell (RBC) Count 4.81 mill/uL (4.70-6.10); White Blood Cell (WBC) Count 6.6 thou/uL (4.8-10.8)
[2022-07-13 04:46] LABS: Anion Gap 11 mmol/L (10-20); BUN (Urea Nitrogen) 15 mg/dL (8.4-25.7); Calc. Creatinine Clearance 58 mL/min (70-130); Calcium 8.4 mg/dL (7.8-10.44); Carbon Dioxide 30 mmol/L (23-31); Chloride 99 mmol/L (98-107); Estimated GFR 66; Glucose 129 mg/dL (83-110); Sodium 137 mmol/L (136-145)
[2022-07-13] MEDS: Furosemide 20 MG/2 ML VIAL SLOW IVP SCH ×2 (05:08→14:25)
[2022-07-13] MEDS: Amiodarone 450 MG in Dextrose 5% in Water 250 ML IVPB SCH (05:08)
[2022-07-13] MEDS ORDERED: Furosemide 40 MG/4 ML VIAL SLOW IVP SCH (06:00)
[2022-07-13] MEDS ORDERED: Amiodarone 200 MG TAB PO SCH ×2 (09:00→09:15)
[2022-07-13] MEDS: Apixaban 5 MG TAB PO SCH ×2 (09:02→21:26)
[2022-07-13] MEDS: Aspirin 81 mg Enteric Coated Tablet PO SCH (09:02)
[2022-07-13] MEDS: Carvedilol 3.125 MG TAB PO SCH ×2 (09:02→17:42)
[2022-07-13] MEDS ORDERED: Potassium Chloride 20 MEQ TAB PO SCH (09:15)
[2022-07-13] MEDS ORDERED: Electrolyte Replacement Protocol 1 EACH FS SCH (09:45)
[2022-07-13 13:20] LABS: CKMB 4.3 ng/mL (0-6.6)
[2022-07-13] MEDS: Nicotine 14 MG PATCH TD SCH (17:42)
[2022-07-13 19:35] LABS: Potassium 3.7 mmol/L (3.5-5.1)
[2022-07-13] MEDS ORDERED: Folic Acid 1 MG TAB PO SCH (21:00)
[2022-07-13] MEDS ORDERED: Multivit, Therapeutic 1 TAB PO SCH (21:00)
[2022-07-13] MEDS ORDERED: Cyanocobalamin (Vitamin B-12) 1,000 MCG TAB PO SCH (21:00)
[2022-07-13] MEDS: Amiodarone 200 MG TAB PO SCH (21:26)
[2022-07-13] MEDS: Atorvastatin Calcium 10 MG TAB PO SCH (21:26)
[2022-07-14 04:46] LABS: Anion Gap 10 mmol/L (10-20); BUN (Urea Nitrogen) 12 mg/dL (8.4-25.7); Calc. Creatinine Clearance 57 mL/min (70-130); Calcium 8.6 mg/dL (7.8-10.44); Carbon Dioxide 32 mmol/L (23-31); Chloride 98 mmol/L (98-107); Estimated GFR 66; Glucose 116 mg/dL (83-110); Potassium 3.2 mmol/L (3.5-5.1); Sodium 137 mmol/L (136-145)
[2022-07-14] MEDS: Furosemide 20 MG/2 ML VIAL SLOW IVP SCH (05:14)
[2022-07-14] MEDS ORDERED: Magnesium 2 GM/50 ML(in water) 2 GM in Premix Bag 1 BAG IVPB SCH (06:00)
[2022-07-14] MEDS ORDERED: Potassium Chloride 20 MEQ TAB PO SCH (06:00)
[2022-07-14 08:38] VITALS: TEMP 98.4
[2022-07-14] MEDS: Aspirin 81 mg Enteric Coated Tablet PO SCH (09:05)
[2022-07-14] MEDS: Amiodarone 200 MG TAB PO SCH (09:05)
[2022-07-14] MEDS: Apixaban 5 MG TAB PO SCH (09:05)
[2022-07-14] MEDS: Carvedilol 3.125 MG TAB PO SCH (09:05)
[2022-07-14 12:02] VITALS: BP 140/75
[2022-07-15] MEDS ORDERED: Potassium Chloride 10 MEQ TAB PO SCH (08:00)
[2022-07-15] MEDS ORDERED: Furosemide 20 MG TAB PO SCH (09:00)
[2022-07-27] MEDS ORDERED: Amiodarone 200 MG TAB PO SCH (09:00)
[2022-08-10] MEDS ORDERED: Amiodarone 200 MG TAB PO SCH (09:00)
== END 2022-07-14 11:30 | disposition home or self-care (01) | DRG 280 ==
LOC: ERS 11:14 → 2NO 14:40
PROVIDERS: ADMIT Internal Medicine; ATTEND Internal Medicine
DX: I13.0 Hypertensive heart and chronic kidney disease with heart failure and stage 1 through stage 4 chronic kidney disease, or unspecified chronic kidney disease (principal); I50.43 Acute on chronic combined systolic (congestive) and diastolic (congestive) heart failure; I21.A1 Myocardial infarction type 2; I42.8 Other cardiomyopathies; E78.5 Hyperlipidemia, unspecified; E78.00 Pure hypercholesterolemia, unspecified; J44.9 Chronic obstructive pulmonary disease, unspecified; F17.210 Nicotine dependence, cigarettes, uncomplicated; I25.10 Atherosclerotic heart disease of native coronary artery without angina pectoris; F12.929 Cannabis use, unspecified with intoxication, unspecified; N40.0 Benign prostatic hyperplasia without lower urinary tract symptoms; E87.6 Hypokalemia; K21.9 Gastro-esophageal reflux disease without esophagitis; Z20.822 Contact with and (suspected) exposure to COVID-19; E11.22 Type 2 diabetes mellitus with diabetic chronic kidney disease; D75.89 Other specified diseases of blood and blood-forming organs; N18.2 Chronic kidney disease, stage 2 (mild); Z79.51 Long term (current) use of inhaled steroids; Z79.01 Long term (current) use of anticoagulants; Z79.899 Other long term (current) drug therapy; Z91.14 Patient's other noncompliance with medication regimen
CPT/HCPCS: 36415; 71045; 80048; 80053; 80306; 80307; 82553; 83690; 83735; 83880; 84443; 84484; 85025; 93005; 93306; 93798; 96374; J0282; J1940; J3475; J7070; U0003; U0005

== ENCOUNTER 2022-09-02 10:39 | Inpatient (IN) | payer OTHER ==
[2022-09-02] MEDS ORDERED: Nitroglycerin 0.4 MG TAB 1 EACH ONE (10:45)
[2022-09-02 11:06] LABS: #Eosinphils 0.3 thou/uL (0.0-0.7); #Lymphocytes 2.7 thou/uL (1.20-3.40); #Monocytes 0.7 thou/uL (0.11-0.59); #Neutrophils 10.2 thou/uL (1.40-6.50); %Basophils 0.3 % (0.0-1.0); %Eosinophils 1.9 % (0.0-10.0); %Lymphocytes 19.6 % (21.0-51.0); %Neutrophils 73.2 % (42.0-75.0); Hemoglobin 17.5 g/dL (14.0-18.0); Mean Corpuscular Hemoglobin 31.2 pg (27.0-31.0); Mean Platelet Volume 9.5 fL (7.4-10.4); Platelet Count 241 thou/uL (130-400); RBC Distribution Width 12.1 % (11.5-14.5); Red Blood Cell (RBC) Count 5.62 mill/uL (4.70-6.10); White Blood Cell (WBC) Count 13.9 thou/uL (4.8-10.8)
[2022-09-02 11:11] LABS: Actual Bicarbonate (HCO3a) 24.5 mEq/L (22-28); Analyzer IN Cardio ER; CO2 Tension 69.1 mmHg (35.0-45.0); Calcium, Ionized (arterial) 1.15 mmol/L (1.12-1.30); Carboxyhemoglobin (COHb) 3.3 gm% (0.0-3.0); Hemoglobin (Hb) 18.1 g/dL (14.0-18.0); O2 Tension (PaO2), arterial 115.1 mmHg (> 60.0); Potassium - ABG Lab 3.64 mmol/L (3.70-5.30); Puncture Site RRA; pH, Arterial 7.17 (7.35-7.45)
[2022-09-02 11:12] LABS: ALV-art Gradient 83.725 mmHg (0-20)
[2022-09-02 11:22] LABS: Anion Gap 15 mmol/L (10-20); BUN (Urea Nitrogen) 15 mg/dL (8.4-25.7); Calc. Creatinine Clearance 0 mL/min (70-130); Calcium 9.1 mg/dL (7.8-10.44); Carbon Dioxide 27 mmol/L (23-31); Chloride 102 mmol/L (98-107); Estimated GFR 47; Glucose 328 mg/dL (83-110); Potassium 3.8 mmol/L (3.5-5.1); Sodium 140 mmol/L (136-145)
[2022-09-02] MEDS ORDERED: Aspirin 81 mg Enteric Coated Tablet ONE (11:25)
[2022-09-02] MEDS ORDERED: methylPREDNISolone Sod Succ/PF 125 MG/2 ML VIAL ONE (11:25)
[2022-09-02] MEDS ORDERED: Magnesium 2 GM/50 ML BAG (IN WATER) ONE (11:25)
[2022-09-02] MEDS ORDERED: cefTRIAXone\\ROCEPHIN 2 GM VIAL ONE (11:25)
[2022-09-02] MEDS ORDERED: Azithromycin 500 MG VIAL ONE ×2 (11:25→11:26)
[2022-09-02 11:46] LABS: CKMB 3.9 ng/mL (0-6.6)
[2022-09-02 12:08] LABS: Actual Bicarbonate (HCO3a) 26.9 mEq/L (22-28); Analyzer IN Cardio ER; Base Excess (BEa) -1.5 mEq/L (-2.0 to +3.0); Calcium, Ionized (arterial) 1.11 mmol/L (1.12-1.30); Carboxyhemoglobin (COHb) 3.2 gm% (0.0-3.0); Hemoglobin (Hb) 16.6 g/dL (14.0-18.0); O2 Tension (PaO2), arterial 88.7 mmHg (> 60.0); Potassium - ABG Lab 3.58 mmol/L (3.70-5.30); pH, Arterial 7.27 (7.35-7.45)
[2022-09-02] MEDS ORDERED: Senokot S 8.6-50 MG TAB PO PRN (12:23)
[2022-09-02] MEDS ORDERED: Ondansetron ODT 4 MG TAB PO PRN (12:23)
[2022-09-02 12:24] LABS: ALV-art Gradient 121.375 mmHg (0-20); CO2 Tension 60.1 mmHg (35.0-45.0); Puncture Site RRA
[2022-09-02] MEDS ORDERED: Amiodarone 200 MG TAB PO SCH (12:30)
[2022-09-02 12:33] LABS: SARS-CoV-2 NAA Rapid Test Not Detected (NotDetected)
[2022-09-02] MEDS ORDERED: Dextrose 50% Abboject 50 ML SYRINGE SLOW IVP PRN (13:35)
[2022-09-02] MEDS ORDERED: Insulin Regular 300 UNITS/3 ML VIAL SC PRN (13:35)
[2022-09-02] MEDS ORDERED: Dextrose 5% in Water 1,000 ML IV PRN (13:35)
[2022-09-02 14:01] LABS: Actual Bicarbonate (HCO3v) 22 mEq/L (22-28); Base Excess -3.1 mEq/L (-2.0 to +3.0); Calcium, Ionized (venous) 0.98 mmol/L (1.16-1.32); Chloride (VBG) 104 mmol/L (98-106); Hemoglobin (Hb) 17.4 g/dL (12.6-17.4); Potassium (VBG) 3.97 mmol/L (3.70-5.30); Sodium 137.8 mmol/L (133-146); pH (venous) 7.36 (7.32-7.43)
[2022-09-02] MEDS: Cefepime 2 GM in Sodium Chloride 0.9% 100 ML IVPB SCH (14:19)
[2022-09-02] MEDS: Furosemide 20 MG/2 ML VIAL SLOW IVP SCH (14:19)
[2022-09-02 14:22] LABS: Lactic Acid 3.5 mmol/L (0.5-2.2)
[2022-09-02 14:41] LABS: Troponin I 0.149 ng/mL (< 0.028)
[2022-09-02 16:02] VITALS: BMI 23.0
[2022-09-02] MEDS ORDERED: DOBUTamine 500 mg/250 ml 250 ML IVPB SCH (17:30)
[2022-09-02 17:33] LABS: Troponin I 0.288 ng/mL (< 0.028)
[2022-09-02] MEDS: Carvedilol 3.125 MG TAB PO SCH (17:43)
[2022-09-02] MEDS: methylPREDNISolone Sod Succ 40 MG VIAL IVP SCH ×2 (17:44→23:03)
[2022-09-02 17:57] LABS: Legionella Urinary Ag Negative (Negative); Strep pneumo Urine Ag NEGATIVE (NEGATIVE)
[2022-09-02] MEDS ORDERED: Furosemide 20 MG/2 ML VIAL SLOW IVP SCH (20:00)
[2022-09-02] MEDS: Atorvastatin Calcium 10 MG TAB PO SCH (21:39)
[2022-09-02] MEDS: Famotidine 20 MG TAB PO SCH (21:39)
[2022-09-02] MEDS: Apixaban 2.5 MG TAB PO SCH (21:39)
[2022-09-03] MEDS: Cefepime 2 GM in Sodium Chloride 0.9% 100 ML IVPB SCH (03:00)
[2022-09-03 04:17] LABS: Hemoglobin A1c 6.1 % (4.0-6.0)
[2022-09-03 04:25] LABS: Lactic Acid 1.3 mmol/L (0.5-2.2)
[2022-09-03 04:36] LABS: ALT (SGPT) 11 U/L (8-55); AST (SGOT) 17 U/L (5-34); Albumin 3.6 g/dL (3.4-4.8); Alkaline Phosphatase 75 U/L (40-110); Anion Gap 12 mmol/L (10-20); BUN (Urea Nitrogen) 18 mg/dL (8.4-25.7); Bilirubin, Total 0.4 mg/dL (0.2-1.2); Calc. Creatinine Clearance 45 mL/min (70-130); Calcium 8.7 mg/dL (7.8-10.44); Carbon Dioxide 27 mmol/L (23-31); Chloride 101 mmol/L (98-107); Estimated GFR 52; Globulin 1.9 g/dL (2.4-3.5); Glucose 180 mg/dL (83-110); Potassium 4.1 mmol/L (3.5-5.1); Protein, Total 5.5 g/dL (5.8-8.1); Sodium 136 mmol/L (136-145)
[2022-09-03 04:46] LABS: #Lymphocytes 0.5 thou/uL (1.20-3.40); #Monocytes 0.2 thou/uL (0.11-0.59); #Neutrophils 5.5 thou/uL (1.40-6.50); %Eosinophils 0.2 % (0.0-10.0); %Monocytes 2.4 % (0.0-10.0); %Neutrophils 89.5 % (42.0-75.0); Hemoglobin 14.5 g/dL (14.0-18.0); Mean Corpuscular HGB CONC 31.4 g/dL (32.0-36.0); Mean Corpuscular Volume 98.6 fl (78.0-98.0); Mean Platelet Volume 9.2 fL (7.4-10.4); Platelet Count 152 thou/uL (130-400); RBC Distribution Width 11.8 % (11.5-14.5); Red Blood Cell (RBC) Count 4.68 mill/uL (4.70-6.10); White Blood Cell (WBC) Count 6.2 thou/uL (4.8-10.8)
[2022-09-03] MEDS: Furosemide 20 MG/2 ML VIAL SLOW IVP SCH ×2 (05:45→14:10)
[2022-09-03] MEDS: methylPREDNISolone Sod Succ 40 MG VIAL IVP SCH (05:45)
[2022-09-03] MEDS: Cyanocobalamin (Vitamin B-12) 1,000 MCG TAB PO SCH (08:29)
[2022-09-03] MEDS: Aspirin 81 mg Enteric Coated Tablet PO SCH (08:29)
[2022-09-03] MEDS: Famotidine 20 MG TAB PO SCH ×2 (08:29→21:01)
[2022-09-03] MEDS: Apixaban 2.5 MG TAB PO SCH ×2 (08:30→21:00)
[2022-09-03] MEDS: Folic Acid 1 MG TAB PO SCH (08:30)
[2022-09-03] MEDS: Carvedilol 3.125 MG TAB PO SCH ×2 (08:30→16:45)
[2022-09-03] MEDS ORDERED: Nicotine 14 MG PATCH TD PRN (09:00)
[2022-09-03] MEDS ORDERED: FLU VACC QS2022-23(65YR UP)/PF 240 MCG/0.7 ML SYRINGE IM ONE (09:00)
[2022-09-03] MEDS: HumaLOG 300 UNITS/3 ML VIAL SC PRN (10:19)
[2022-09-03] MEDS ORDERED: cefTRIAXone\\ROCEPHIN 1 GM in Sodium Chloride 0.9% 100 ML IVPB SCH (11:00)
[2022-09-03] MEDS ORDERED: Azithromycin 500 MG in Sodium Chloride 0.9% 250 ML 250 ML IVPB SCH (12:00)
[2022-09-03] MEDS ORDERED: Amiodarone 200 MG TAB PO SCH (12:00)
[2022-09-03] MEDS: Atorvastatin Calcium 10 MG TAB PO SCH (21:00)
[2022-09-04 04:13] LABS: #Eosinphils 0.1 thou/uL (0.0-0.7); #Lymphocytes 1.5 thou/uL (1.20-3.40); #Monocytes 0.9 thou/uL (0.11-0.59); #Neutrophils 8.4 thou/uL (1.40-6.50); %Basophils 0.1 % (0.0-1.0); %Eosinophils 0.7 % (0.0-10.0); %Lymphocytes 13.4 % (21.0-51.0); %Monocytes 8.1 % (0.0-10.0); %Neutrophils 77.7 % (42.0-75.0); Hemoglobin 14.7 g/dL (14.0-18.0); Mean Corpuscular HGB CONC 32.5 g/dL (32.0-36.0); Mean Corpuscular Hemoglobin 31.6 pg (27.0-31.0); Mean Corpuscular Volume 97.2 fl (78.0-98.0); Mean Platelet Volume 9.4 fL (7.4-10.4); Platelet Count 142 thou/uL (130-400); Red Blood Cell (RBC) Count 4.66 mill/uL (4.70-6.10); White Blood Cell (WBC) Count 10.8 thou/uL (4.8-10.8)
[2022-09-04 04:25] LABS: Anion Gap 13 mmol/L (10-20); BUN (Urea Nitrogen) 20 mg/dL (8.4-25.7); Calc. Creatinine Clearance 51 mL/min (70-130); Carbon Dioxide 29 mmol/L (23-31); Chloride 100 mmol/L (98-107); Estimated GFR 57; Glucose 128 mg/dL (83-110); Potassium 3.6 mmol/L (3.5-5.1); Sodium 138 mmol/L (136-145)
[2022-09-04] MEDS: Furosemide 20 MG/2 ML VIAL SLOW IVP SCH ×2 (06:19→13:55)
[2022-09-04] MEDS: Cyanocobalamin (Vitamin B-12) 1,000 MCG TAB PO SCH (08:31)
[2022-09-04] MEDS: Apixaban 2.5 MG TAB PO SCH (08:31)
[2022-09-04] MEDS: Aspirin 81 mg Enteric Coated Tablet PO SCH (08:32)
[2022-09-04] MEDS: Folic Acid 1 MG TAB PO SCH (08:32)
[2022-09-04] MEDS: Carvedilol 3.125 MG TAB PO SCH (08:32)
[2022-09-04] MEDS ORDERED: Amiodarone 150 MG in Dextrose 5% in Water 100 ML IVPB SCH (09:00)
[2022-09-04] MEDS ORDERED: Amiodarone 200 MG TAB PO SCH ×3 (09:00→21:00)
[2022-09-04] MEDS ORDERED: Amiodarone 450 MG in Dextrose 5% in Water 250 ML IVPB SCH (09:15)
[2022-09-04] MEDS ORDERED: Potassium Chloride 20 MEQ TAB PO SCH (09:15)
[2022-09-04] MEDS: HumaLOG 300 UNITS/3 ML VIAL SC PRN (11:56)
[2022-09-04 12:47] VITALS: TEMP 98
[2022-09-04 13:50] VITALS: BP 113/62
[2022-09-04] MEDS ORDERED: Apixaban 5 MG TAB PO SCH (21:00)
[2022-09-05] MEDS ORDERED: Potassium Chloride 20 MEQ TAB PO SCH (08:00)
== END 2022-09-04 14:25 | disposition home or self-care (01) | DRG 291 ==
LOC: ERS 10:39 → CCU 12:23
PROVIDERS: ADMIT Family Medicine; ATTEND Family Medicine
PROC: 3E033XZ Introduction of Vasopressor into Peripheral Vein, Percutaneous Approach (ICD-10-PCS; principal; 2022-09-02)
PROC: 5A09357 Assistance with Respiratory Ventilation, Less than 24 Consecutive Hours, Continuous Positive Airway Pressure (ICD-10-PCS; 2022-09-02)
DX: I11.0 Hypertensive heart disease with heart failure (principal); Z20.822 Contact with and (suspected) exposure to COVID-19; I50.23 Acute on chronic systolic (congestive) heart failure; J96.01 Acute respiratory failure with hypoxia; I48.20 Chronic atrial fibrillation, unspecified; N17.9 Acute kidney failure, unspecified; I25.10 Atherosclerotic heart disease of native coronary artery without angina pectoris; F17.210 Nicotine dependence, cigarettes, uncomplicated; E78.5 Hyperlipidemia, unspecified; I16.0 Hypertensive urgency; R73.9 Hyperglycemia, unspecified; J44.9 Chronic obstructive pulmonary disease, unspecified; Z28.21 Immunization not carried out because of patient refusal; Z79.899 Other long term (current) drug therapy; Z79.01 Long term (current) use of anticoagulants; Z79.82 Long term (current) use of aspirin; Z91.199 Patient's noncompliance with other medical treatment and regimen due to unspecified reason; Z82.49 Family history of ischemic heart disease and other diseases of the circulatory system; Z83.49 Family history of other endocrine, nutritional and metabolic diseases; Z71.6 Tobacco abuse counseling
CPT/HCPCS: 36415; 36416; 36600; 71045; 71275; 76770; 80048; 80053; 82553; 82805; 83036; 83605; 83880; 84145; 84484; 85025; 85379; 87040; 87449; 87899; 93005; 93010; 94640; 94660; J0456; J0692; J0696; J1250; J1815; J1940; J2920; J2930; J3475; J3490; J7620; Q9967

== ENCOUNTER 2022-10-30 18:47 | Inpatient (IN) | payer MEDICARE, OTHER ==
[2022-10-30] MEDS ORDERED: Adenosine 6 MG/2 ML VIAL ONE (18:56)
[2022-10-30] MEDS ORDERED: Diltiazem 125 MG/25 ML ONE (19:04)
[2022-10-30 19:12] LABS: #Lymphocytes 0.8 thou/uL (1.20-3.40); #Neutrophils 13.3 thou/uL (1.40-6.50); %Basophils 0.1 % (0.0-1.0); %Eosinophils 0.1 % (0.0-10.0); %Lymphocytes 5.5 % (21.0-51.0); %Monocytes 6.8 % (0.0-10.0); %Neutrophils 87.5 % (42.0-75.0); Hemoglobin 17.4 g/dL (14.0-18.0); Mean Corpuscular Hemoglobin 34.4 pg (27.0-31.0); Mean Platelet Volume 10.2 fL (7.4-10.4); Platelet Count 188 10x3/uL (130-400); RBC Distribution Width 13.3 % (11.5-14.5); Red Blood Cell (RBC) Count 5.05 mill/uL (4.70-6.10); White Blood Cell (WBC) Count 15.2 10x3/uL (4.8-10.8)
[2022-10-30 19:24] LABS: PTT 24.3 sec (22.9-36.1); Prothrombin Time 13.6 sec (12.0-14.7)
[2022-10-30 20:01] LABS: CKMB 12.9 ng/mL (0-6.6)
[2022-10-30 20:16] LABS: Albumin 3.9 g/dL (3.4-4.8)
[2022-10-30 20:18] LABS: Calcium 9.3 mg/dL (7.8-10.44); Chloride 98 mmol/L (98-107); Potassium 4.4 mmol/L (3.5-5.1); Sodium 140 mmol/L (136-145)
[2022-10-30 20:19] LABS: Globulin 1.9 g/dL (2.4-3.5); Glucose 186 mg/dL (83-110); Protein, Total 5.8 g/dL (5.8-8.1)
[2022-10-30 20:21] LABS: Anion Gap 18 mmol/L (10-20); Bilirubin, Total 0.9 mg/dL (0.2-1.2); Carbon Dioxide 28 mmol/L (23-31)
[2022-10-30 20:22] LABS: Alkaline Phosphatase 85 U/L (40-110); Calc. Creatinine Clearance 0 mL/min (70-130); Estimated GFR 44
[2022-10-30 20:23] LABS: BUN (Urea Nitrogen) 17 mg/dL (8.4-25.7)
[2022-10-30 20:24] LABS: AST (SGOT) 35 U/L (5-34)
[2022-10-30 20:25] LABS: ALT (SGPT) 28 U/L (8-55)
[2022-10-30] MEDS ORDERED: Aspirin Chewable 81 MG TAB ONE (21:23)
[2022-10-30] MEDS ORDERED: Furosemide 40 MG/4 ML VIAL ONE (21:23)
[2022-10-30] MEDS ORDERED: Enoxaparin Sodium 40 MG/0.4 ML SYRINGE ONE (21:23)
[2022-10-30] MEDS ORDERED: Cefepime 2 GM VIAL ONE (21:23)
[2022-10-30] MEDS ORDERED: Vancomycin 1 GM/200 ML (FROZEN) BAG ONE (21:23)
[2022-10-30] MEDS ORDERED: Acetaminophen 325 MG TAB PO PRN (21:26)
[2022-10-30] MEDS ORDERED: Ondansetron PF 4 MG/2 ML Vial IVP PRN (21:26)
[2022-10-30] MEDS ORDERED: Diltiazem 125 MG in Sodium Chloride 0.9% 100 ML IVPB SCH (21:45)
[2022-10-30 22:26] LABS: SARS-CoV-2 NAA Rapid Test Not Detected (NotDetected)
[2022-10-30 22:30] LABS: Bacteria/HPF None Seen HPF (None Seen); Bilirubin Negative (Negative); Blood, Urine 1+ (Negative); Clarity Clear (Clear); Glucose, Urine (Dipstick) Normal (Negative); Ketone, Urine Negative (Negative); Leukocyte Negative Leu/uL (Negative); Nitrite Negative (Negative); Protein, Urine (Dipstick) 20 mg/dL (Neg-Trace); RBC/HPF 0-3 HPF (0-3); Specific Gravity, Urine 1.011 (1.002-1.036); Squamous Epithelial 0-3 HPF (0-3); Urobilinogen Normal mg/dL (Less than 2); WBC/HPF 0-3 HPF (0-3)
[2022-10-30 23:03] LABS: Troponin I 0.146 ng/mL (< 0.028)
[2022-10-30 23:04] LABS: Lactic Acid 2.5 mmol/L (0.5-2.2)
[2022-10-31 01:35] LABS: Troponin I 0.194 ng/mL (< 0.028)
[2022-10-31 04:19] VITALS: BMI 28.5
[2022-10-31] MEDS ORDERED: Furosemide 40 MG/4 ML VIAL ONE (06:03)
[2022-10-31] MEDS: Furosemide 40 MG/4 ML VIAL SLOW IVP SCH ×2 (06:11→14:38)
[2022-10-31 07:29] LABS: #Eosinphils 0.1 thou/uL (0.0-0.7); #Lymphocytes 1.4 thou/uL (1.20-3.40); #Neutrophils 7.1 thou/uL (1.40-6.50); %Basophils 0.3 % (0.0-1.0); %Eosinophils 0.9 % (0.0-10.0); %Lymphocytes 14.8 % (21.0-51.0); %Monocytes 10.7 % (0.0-10.0); %Neutrophils 73.2 % (42.0-75.0); Hemoglobin 15.1 g/dL (14.0-18.0); Mean Corpuscular HGB CONC 32.7 g/dL (32.0-36.0); Mean Corpuscular Hemoglobin 33.1 pg (27.0-31.0); Mean Platelet Volume 9.4 fL (7.4-10.4); Platelet Count 152 10x3/uL (130-400); RBC Distribution Width 13.2 % (11.5-14.5); Red Blood Cell (RBC) Count 4.56 mill/uL (4.70-6.10); White Blood Cell (WBC) Count 9.7 10x3/uL (4.8-10.8)
[2022-10-31 07:52] LABS: ALT (SGPT) 22 U/L (8-55); AST (SGOT) 26 U/L (5-34); Albumin 3.7 g/dL (3.4-4.8); Alkaline Phosphatase 80 U/L (40-110); Anion Gap 15 mmol/L (10-20); BUN (Urea Nitrogen) 17 mg/dL (8.4-25.7); Bilirubin, Direct 0.4 mg/dL (0.1-0.3); Bilirubin, Total 1.2 mg/dL (0.2-1.2); Calc. Creatinine Clearance 55 mL/min (70-130); Calcium 8.9 mg/dL (7.8-10.44); Carbon Dioxide 28 mmol/L (23-31); Chloride 100 mmol/L (98-107); Estimated GFR 50; Glucose 108 mg/dL (83-110); Potassium 3.9 mmol/L (3.5-5.1); Protein, Total 5.6 g/dL (5.8-8.1); Sodium 139 mmol/L (136-145)
[2022-10-31] MEDS ORDERED: Cefepime 1 GM VIAL ONE (09:41)
[2022-10-31] MEDS ORDERED: Aspirin Chewable 81 MG TAB ONE (09:41)
[2022-10-31] MEDS: Aspirin 81 mg Enteric Coated Tablet PO SCH (09:45)
[2022-10-31] MEDS: Cefepime 1 GM in Sodium Chloride 0.9% 100 ML IVPB SCH ×2 (09:45→21:00)
[2022-10-31] MEDS: Carvedilol 3.125 MG TAB PO SCH ×2 (09:45→19:37)
[2022-10-31] MEDS: Apixaban 5 MG TAB PO SCH ×2 (09:45→21:00)
[2022-10-31] MEDS: Amiodarone 200 MG TAB PO SCH (09:45)
[2022-10-31] MEDS ORDERED: Vancomycin 1.5 GRAM/300 ML BAG 1.5 GM in Premix Bag 1 BAG IVPB SCH (14:00)
[2022-10-31] MEDS: Atorvastatin Calcium 10 MG TAB PO SCH (21:00)
[2022-11-01 04:49] LABS: #Eosinphils 0.2 thou/uL (0.0-0.7); #Lymphocytes 1.7 thou/uL (1.20-3.40); #Monocytes 0.9 thou/uL (0.11-0.59); #Neutrophils 5.2 thou/uL (1.40-6.50); %Basophils 0.4 % (0.0-1.0); %Eosinophils 2.5 % (0.0-10.0); %Lymphocytes 20.9 % (21.0-51.0); %Neutrophils 65.2 % (42.0-75.0); Hemoglobin 15.8 g/dL (14.0-18.0); Mean Corpuscular HGB CONC 34.4 g/dL (32.0-36.0); Mean Corpuscular Hemoglobin 34.7 pg (27.0-31.0); Mean Platelet Volume 9.3 fL (7.4-10.4); Platelet Count 154 10x3/uL (130-400); Red Blood Cell (RBC) Count 4.55 mill/uL (4.70-6.10)
[2022-11-01] MEDS: Furosemide 40 MG/4 ML VIAL SLOW IVP SCH ×2 (04:58→14:18)
[2022-11-01 05:17] LABS: Anion Gap 14 mmol/L (10-20); BUN (Urea Nitrogen) 17 mg/dL (8.4-25.7); Calc. Creatinine Clearance 55 mL/min (70-130); Calcium 8.5 mg/dL (7.8-10.44); Carbon Dioxide 29 mmol/L (23-31); Chloride 99 mmol/L (98-107); Estimated GFR 62; Glucose 96 mg/dL (83-110); Magnesium 1.9 mg/dL (1.6-2.6); Sodium 139 mmol/L (136-145)
[2022-11-01] MEDS ORDERED: Potassium Chloride 20 MEQ TAB PO SCH (08:15)
[2022-11-01] MEDS: Cefepime 1 GM in Sodium Chloride 0.9% 100 ML IVPB SCH ×2 (09:03→22:41)
[2022-11-01] MEDS: Apixaban 5 MG TAB PO SCH ×2 (09:03→22:42)
[2022-11-01] MEDS: Carvedilol 3.125 MG TAB PO SCH ×2 (09:03→16:26)
[2022-11-01] MEDS: Amiodarone 200 MG TAB PO SCH (09:03)
[2022-11-01] MEDS: Aspirin 81 mg Enteric Coated Tablet PO SCH (09:03)
[2022-11-01] MEDS ORDERED: Amiodarone 150 MG in Dextrose 5% in Water 100 ML IVPB SCH (12:15)
[2022-11-01] MEDS: Amiodarone 450 MG in Dextrose 5% in Water 250 ML IVPB SCH ×2 (13:11→22:42)
[2022-11-01] MEDS: Atorvastatin Calcium 10 MG TAB PO SCH (22:42)
[2022-11-02 04:30] LABS: #Eosinphils 0.2 thou/uL (0.0-0.7); #Lymphocytes 1.6 thou/uL (1.20-3.40); #Monocytes 0.9 thou/uL (0.11-0.59); #Neutrophils 4.6 thou/uL (1.40-6.50); %Basophils 0.6 % (0.0-1.0); %Eosinophils 3.1 % (0.0-10.0); %Lymphocytes 21.5 % (21.0-51.0); %Monocytes 11.7 % (0.0-10.0); %Neutrophils 63.1 % (42.0-75.0); Hemoglobin 15.6 g/dL (14.0-18.0); Mean Corpuscular Hemoglobin 34.1 pg (27.0-31.0); Mean Platelet Volume 9.5 fL (7.4-10.4); Platelet Count 172 10x3/uL (130-400); RBC Distribution Width 12.9 % (11.5-14.5); Red Blood Cell (RBC) Count 4.58 mill/uL (4.70-6.10); White Blood Cell (WBC) Count 7.2 10x3/uL (4.8-10.8)
[2022-11-02 04:58] LABS: Anion Gap 11 mmol/L (10-20); BUN (Urea Nitrogen) 17 mg/dL (8.4-25.7); Calc. Creatinine Clearance 53 mL/min (70-130); Calcium 8.4 mg/dL (7.8-10.44); Carbon Dioxide 31 mmol/L (23-31); Chloride 97 mmol/L (98-107); Estimated GFR 58; Glucose 124 mg/dL (83-110); Magnesium 1.8 mg/dL (1.6-2.6); Potassium 3.1 mmol/L (3.5-5.1); Sodium 136 mmol/L (136-145)
[2022-11-02] MEDS: Furosemide 40 MG/4 ML VIAL SLOW IVP SCH ×2 (05:15→14:15)
[2022-11-02] MEDS ORDERED: Potassium Chloride 20 MEQ TAB PO SCH ×3 (08:00→18:15)
[2022-11-02] MEDS: Carvedilol 3.125 MG TAB PO SCH ×2 (09:14→17:55)
[2022-11-02] MEDS: Cefepime 1 GM in Sodium Chloride 0.9% 100 ML IVPB SCH (09:15)
[2022-11-02] MEDS: Apixaban 5 MG TAB PO SCH ×2 (09:15→20:01)
[2022-11-02] MEDS: Aspirin 81 mg Enteric Coated Tablet PO SCH (09:15)
[2022-11-02] MEDS ORDERED: Dextrose 5% in Water 1,000 ML IV PRN (13:20)
[2022-11-02] MEDS ORDERED: Insulin Regular 300 UNITS/3 ML VIAL SC PRN (13:20)
[2022-11-02] MEDS ORDERED: Dextrose 50% Abboject 50 ML SYRINGE SLOW IVP PRN (13:20)
[2022-11-02] MEDS ORDERED: Amiodarone 200 MG TAB PO SCH ×2 (15:00→21:00)
[2022-11-02 17:48] LABS: Magnesium 1.9 mg/dL (1.6-2.6); Potassium 3.1 mmol/L (3.5-5.1)
[2022-11-02] MEDS: Atorvastatin Calcium 10 MG TAB PO SCH (20:01)
[2022-11-02 20:27] VITALS: BP 121/69; TEMP 97.8
[2022-11-02] MEDS ORDERED: CEFEPIME HCL IN DEXTROSE 5 % 1 GM in Premix Bag 1 BAG IVPB SCH (21:00)
== END 2022-11-02 20:22 | disposition home or self-care (01) | DRG 280 ==
LOC: ERS 18:47 → ERHOLD 21:24 → 2NO 10-31 13:44
PROVIDERS: ADMIT Internal Medicine; ATTEND Internal Medicine
DX: I13.0 Hypertensive heart and chronic kidney disease with heart failure and stage 1 through stage 4 chronic kidney disease, or unspecified chronic kidney disease (principal); I50.23 Acute on chronic systolic (congestive) heart failure; I21.A1 Myocardial infarction type 2; J96.01 Acute respiratory failure with hypoxia; J44.1 Chronic obstructive pulmonary disease with (acute) exacerbation; N17.9 Acute kidney failure, unspecified; E87.20 Acidosis, unspecified; Z20.822 Contact with and (suspected) exposure to COVID-19; I42.8 Other cardiomyopathies; I48.91 Unspecified atrial fibrillation; I25.10 Atherosclerotic heart disease of native coronary artery without angina pectoris; N18.2 Chronic kidney disease, stage 2 (mild); I45.10 Unspecified right bundle-branch block; F17.210 Nicotine dependence, cigarettes, uncomplicated; R77.8 Other specified abnormalities of plasma proteins; E78.00 Pure hypercholesterolemia, unspecified; N40.0 Benign prostatic hyperplasia without lower urinary tract symptoms; F17.290 Nicotine dependence, other tobacco product, uncomplicated; Z91.14 Patient's other noncompliance with medication regimen; Z79.899 Other long term (current) drug therapy; Z79.82 Long term (current) use of aspirin; Z90.49 Acquired absence of other specified parts of digestive tract; Z82.49 Family history of ischemic heart disease and other diseases of the circulatory system; Z79.01 Long term (current) use of anticoagulants
CPT/HCPCS: 36415; 36416; 71045; 80048; 80053; 80076; 81003; 81015; 82553; 83605; 83735; 83880; 84443; 84484; 85025; 85610; 85730; 87040; 87081; 87086; 93005; 93010; 94640; 96365; 96366; 96372; 96374; 96375; J0153; J0282; J0692; J1650; J1940; J3370; J3370-JW; J3490; J7070; J7620

== ENCOUNTER 2022-11-12 12:32 | Emergency (ER) | payer OTHER ==
[2022-11-12] MEDS ORDERED: Ipratropium/Albuterol 3 ML NEB ONE (13:18)
[2022-11-12 13:23] LABS: #Basophils 0.1 thou/uL (0.0-0.2); #Lymphocytes 1.3 thou/uL (1.20-3.40); #Monocytes 0.7 thou/uL (0.11-0.59); #Neutrophils 10.6 thou/uL (1.40-6.50); %Basophils 0.4 % (0.0-1.0); %Eosinophils 0.3 % (0.0-10.0); %Lymphocytes 10.4 % (21.0-51.0); %Monocytes 5.5 % (0.0-10.0); %Neutrophils 83.3 % (42.0-75.0); Hemoglobin 17.9 g/dL (14.0-18.0); Mean Corpuscular HGB CONC 33.4 g/dL (32.0-36.0); Mean Corpuscular Hemoglobin 33.4 pg (27.0-31.0); Mean Platelet Volume 10.1 fL (7.4-10.4); Platelet Count 186 10x3/uL (130-400); RBC Distribution Width 12.9 % (11.5-14.5); Red Blood Cell (RBC) Count 5.36 mill/uL (4.70-6.10); White Blood Cell (WBC) Count 12.7 10x3/uL (4.8-10.8)
[2022-11-12 13:36] LABS: INR-International Normal Ratio 0.9; PTT 27.9 sec (22.9-36.1); Prothrombin Time 12.4 sec (12.0-14.7)
[2022-11-12 13:45] LABS: ALT (SGPT) 11 U/L (8-55); AST (SGOT) 29 U/L (5-34); Albumin 4.5 g/dL (3.4-4.8); Alkaline Phosphatase 88 U/L (40-110); Anion Gap 14 mmol/L (10-20); BUN (Urea Nitrogen) 14 mg/dL (8.4-25.7); Bilirubin, Total 1.2 mg/dL (0.2-1.2); Calc. Creatinine Clearance 0 mL/min (70-130); Calcium 9.4 mg/dL (7.8-10.44); Carbon Dioxide 34 mmol/L (23-31); Chloride 97 mmol/L (98-107); Estimated GFR 54; Globulin 2.4 g/dL (2.4-3.5); Glucose 115 mg/dL (83-110); Potassium 4.4 mmol/L (3.5-5.1); Protein, Total 6.9 g/dL (5.8-8.1); Sodium 141 mmol/L (136-145)
[2022-11-12 14:13] LABS: CKMB 7.2 ng/mL (0-6.6)
[2022-11-12] MEDS ORDERED: Dexamethasone 4 mg/ml Vial ONE (14:17)
[2022-11-12] MEDS ORDERED: Boostrix 0.5 ML (Tdap) VIAL (>/=7 yrs of age) ONE (14:17)
== END 2022-11-12 14:30 | disposition home or self-care (01) ==
LOC: ERS 12:32
DX: J45.909 Unspecified asthma, uncomplicated (principal); S02.32XA Fracture of orbital floor, left side, initial encounter for closed fracture; E11.9 Type 2 diabetes mellitus without complications; J44.9 Chronic obstructive pulmonary disease, unspecified; I11.0 Hypertensive heart disease with heart failure; I50.9 Heart failure, unspecified; D72.829 Elevated white blood cell count, unspecified; F17.210 Nicotine dependence, cigarettes, uncomplicated; W18.30XA Fall on same level, unspecified, initial encounter; Z79.01 Long term (current) use of anticoagulants; Z79.84 Long term (current) use of oral hypoglycemic drugs; Z79.82 Long term (current) use of aspirin
CPT/HCPCS: 70450; 70486; 71045; 80053; 82553; 83735; 83880; 84443; 84484; 85025; 85610; 85730; 90471; 90715; 93005; 96374; J1100; J7620

== ENCOUNTER 2022-11-18 09:29 | Inpatient (IN) | payer OTHER ==
[2022-11-18] MEDS ORDERED: Ipratropium/Albuterol 3 ML NEB ONE (09:43)
[2022-11-18] MEDS ORDERED: Furosemide 40 MG/4 ML VIAL ONE (10:03)
[2022-11-18] MEDS ORDERED: Magnesium 2 GM/50 ML BAG (IN WATER) ONE (10:04)
[2022-11-18] MEDS ORDERED: Nitroglycerin 50 MG/250 ML BOT 0 ML ONE (10:04)
[2022-11-18 10:12] LABS: Actual Bicarbonate (HCO3a) 28.8 mEq/L (22-28); Analyzer IN Cardio ER; Base Excess (BEa) -0.6 mEq/L (-2.0 to +3.0); Calcium, Ionized (arterial) 1.16 mmol/L (1.12-1.30); Carboxyhemoglobin (COHb) 3.7 gm% (0.0-3.0); Hemoglobin (Hb) 17.5 g/dL (14.0-18.0); O2 Tension (PaO2), arterial 180.9 mmHg (> 60.0); pH, Arterial 7.26 (7.35-7.45)
[2022-11-18] MEDS ORDERED: Nitroglycerin 2% Ointment 1 INCH/1 GM Packet ONE (10:15)
[2022-11-18 10:16] LABS: CO2 Tension 66.2 mmHg (35.0-45.0)
[2022-11-18 10:17] LABS: Puncture Site LRA
[2022-11-18 10:20] LABS: #Eosinphils 0.1 thou/uL (0.0-0.7); #Lymphocytes 0.9 thou/uL (1.20-3.40); #Monocytes 0.5 thou/uL (0.11-0.59); #Neutrophils 10.8 thou/uL (1.40-6.50); %Basophils 0.2 % (0.0-1.0); %Eosinophils 0.8 % (0.0-10.0); %Lymphocytes 7.4 % (21.0-51.0); %Monocytes 3.9 % (0.0-10.0); %Neutrophils 87.7 % (42.0-75.0); Mean Corpuscular HGB CONC 33.8 g/dL (32.0-36.0); Mean Corpuscular Hemoglobin 34.2 pg (27.0-31.0); Mean Platelet Volume 10.2 fL (7.4-10.4); Platelet Count 151 10x3/uL (130-400); RBC Distribution Width 12.8 % (11.5-14.5); Red Blood Cell (RBC) Count 4.96 mill/uL (4.70-6.10); White Blood Cell (WBC) Count 12.3 10x3/uL (4.8-10.8)
[2022-11-18 10:38] LABS: Magnesium 2.7 mg/dL (1.6-2.6)
[2022-11-18] MEDS ORDERED: Calcium Carbonate 500 MG ChewTAB PO PRN (11:52)
[2022-11-18] MEDS ORDERED: Acetaminophen 325 MG TAB PO PRN (11:52)
[2022-11-18] MEDS ORDERED: Ondansetron PF 4 MG/2 ML Vial IVP PRN (11:52)
[2022-11-18] MEDS ORDERED: HYDROcodone/Acetaminophen 5/325 mg Tablet PO PRN (11:52)
[2022-11-18] MEDS ORDERED: Ipratropium/Albuterol 3 ML NEB NEB PRN (12:01)
[2022-11-18 12:46] LABS: ALT (SGPT) 15 U/L (8-55); AST (SGOT) 24 U/L (5-34); Albumin 3.9 g/dL (3.4-4.8); Alkaline Phosphatase 96 U/L (40-110); Anion Gap 20 mmol/L (10-20); BUN (Urea Nitrogen) 17 mg/dL (8.4-25.7); Calc. Creatinine Clearance 0 mL/min (70-130); Calcium 8.9 mg/dL (7.8-10.44); Carbon Dioxide 21 mmol/L (23-31); Chloride 103 mmol/L (98-107); Estimated GFR 47; Globulin 2.4 g/dL (2.4-3.5); Glucose 255 mg/dL (83-110); Potassium 3.7 mmol/L (3.5-5.1); Protein, Total 6.3 g/dL (5.8-8.1); Sodium 140 mmol/L (136-145)
[2022-11-18 13:02] LABS: Bacteria/HPF 1+ HPF (None Seen); Bilirubin Negative (Negative); Blood, Urine Trace (Negative); Clarity Clear (Clear); Glucose, Urine (Dipstick) 150 mg/dL (Negative); Ketone, Urine Negative (Negative); Leukocyte Negative Leu/uL (Negative); Nitrite Negative (Negative); Protein, Urine (Dipstick) 10 mg/dL (Neg-Trace); RBC/HPF 0-3 HPF (0-3); Specific Gravity, Urine 1.008 (1.002-1.036); Squamous Epithelial 0-3 HPF (0-3); Urobilinogen Normal mg/dL (Less than 2); WBC/HPF 0-3 HPF (0-3)
[2022-11-18 13:36] LABS: SARS-CoV-2 NAA Rapid Test Not Detected (NotDetected)
[2022-11-18] MEDS: Ipratropium/Albuterol 3 ML NEB NEB SCH ×3 (14:52→23:55)
[2022-11-18] MEDS: methylPREDNISolone Sod Succ 40 MG VIAL IVP SCH ×2 (14:56→21:19)
[2022-11-18] MEDS: Cefepime 1 GM in Sodium Chloride 0.9% 100 ML IVPB SCH (14:57)
[2022-11-18] MEDS: Furosemide 20 MG/2 ML VIAL SLOW IVP SCH (14:57)
[2022-11-18 15:30] LABS: Lactic Acid 3.1 mmol/L (0.5-2.2)
[2022-11-18 15:51] VITALS: BMI 24.5
[2022-11-18] MEDS: Nicotine 21 MG PATCH TD SCH (16:56)
[2022-11-18] MEDS: Carvedilol 3.125 MG TAB PO SCH (16:56)
[2022-11-18] MEDS: Atorvastatin Calcium 10 MG TAB PO SCH (21:19)
[2022-11-18] MEDS: Apixaban 5 MG TAB PO SCH (21:20)
[2022-11-18] MEDS: Amiodarone 200 MG TAB PO SCH (21:20)
[2022-11-19] MEDS: Cefepime 1 GM in Sodium Chloride 0.9% 100 ML IVPB SCH ×2 (01:14→14:24)
[2022-11-19 03:22] LABS: #Basophils 0.1 thou/uL (0.0-0.2); #Lymphocytes 0.2 thou/uL (1.20-3.40); #Monocytes 0.2 thou/uL (0.11-0.59); #Neutrophils 6.1 thou/uL (1.40-6.50); %Basophils 1.5 % (0.0-1.0); %Eosinophils 0.1 % (0.0-10.0); %Lymphocytes 2.7 % (21.0-51.0); %Monocytes 2.8 % (0.0-10.0); %Neutrophils 92.9 % (42.0-75.0); Hemoglobin 14.1 g/dL (14.0-18.0); Mean Corpuscular HGB CONC 33.8 g/dL (32.0-36.0); Mean Corpuscular Hemoglobin 33.4 pg (27.0-31.0); Mean Corpuscular Volume 99.1 fl (78.0-98.0); Mean Platelet Volume 10.6 fL (7.4-10.4); Platelet Count 120 10x3/uL (130-400); RBC Distribution Width 12.5 % (11.5-14.5); Red Blood Cell (RBC) Count 4.23 mill/uL (4.70-6.10); White Blood Cell (WBC) Count 6.6 10x3/uL (4.8-10.8)
[2022-11-19 03:44] LABS: Anion Gap 13 mmol/L (10-20); BUN (Urea Nitrogen) 23 mg/dL (8.4-25.7); Calc. Creatinine Clearance 49 mL/min (70-130); Calcium 8.5 mg/dL (7.8-10.44); Carbon Dioxide 29 mmol/L (23-31); Chloride 97 mmol/L (98-107); Estimated GFR 52; Glucose 239 mg/dL (83-110); Potassium 3.8 mmol/L (3.5-5.1); Sodium 135 mmol/L (136-145)
[2022-11-19] MEDS: Furosemide 20 MG/2 ML VIAL SLOW IVP SCH ×2 (05:14→14:24)
[2022-11-19] MEDS: methylPREDNISolone Sod Succ 40 MG VIAL IVP SCH ×3 (05:14→17:06)
[2022-11-19] MEDS: Ipratropium/Albuterol 3 ML NEB NEB SCH ×3 (07:05→18:31)
[2022-11-19] MEDS: Aspirin 81 mg Enteric Coated Tablet PO SCH (08:24)
[2022-11-19] MEDS: Amiodarone 200 MG TAB PO SCH ×2 (08:24→20:48)
[2022-11-19] MEDS: Carvedilol 3.125 MG TAB PO SCH ×2 (08:24→17:06)
[2022-11-19] MEDS: Apixaban 5 MG TAB PO SCH ×2 (08:24→20:49)
[2022-11-19] MEDS: Nicotine 21 MG PATCH TD SCH ×2 (17:07→17:08)
[2022-11-19] MEDS: Mometasone 200 MCG/Formoterol 5 MCG 120 PUFF INHALER INH SCH (18:41)
[2022-11-19] MEDS: Atorvastatin Calcium 10 MG TAB PO SCH (20:48)
[2022-11-20] MEDS: Ipratropium/Albuterol 3 ML NEB NEB SCH ×3 (01:02→08:33)
[2022-11-20] MEDS: Cefepime 1 GM in Sodium Chloride 0.9% 100 ML IVPB SCH (01:03)
[2022-11-20] MEDS: methylPREDNISolone Sod Succ 40 MG VIAL IVP SCH ×3 (01:03→11:43)
[2022-11-20] MEDS: Furosemide 20 MG/2 ML VIAL SLOW IVP SCH (05:39)
[2022-11-20 05:42] LABS: Anion Gap 13 mmol/L (10-20); BUN (Urea Nitrogen) 26 mg/dL (8.4-25.7); Calc. Creatinine Clearance 53 mL/min (70-130); Carbon Dioxide 30 mmol/L (23-31); Chloride 96 mmol/L (98-107); Potassium 4.1 mmol/L (3.5-5.1); Sodium 135 mmol/L (136-145)
[2022-11-20 05:43] LABS: Calcium 8.8 mg/dL (7.8-10.44); Estimated GFR 58; Glucose 194 mg/dL (83-110); Magnesium 2.1 mg/dL (1.6-2.6)
[2022-11-20] MEDS: Carvedilol 3.125 MG TAB PO SCH (08:26)
[2022-11-20] MEDS: Aspirin 81 mg Enteric Coated Tablet PO SCH (08:26)
[2022-11-20] MEDS: Amiodarone 200 MG TAB PO SCH (08:26)
[2022-11-20] MEDS: Apixaban 5 MG TAB PO SCH (08:26)
[2022-11-20] MEDS: Mometasone 200 MCG/Formoterol 5 MCG 120 PUFF INHALER INH SCH (08:35)
[2022-11-20] MEDS ORDERED: Ipratropium/Albuterol 3 ML NEB NEB PRN (08:57)
[2022-11-20 12:34] VITALS: BP 163/81; TEMP 97.3
[2022-11-30] MEDS ORDERED: Amiodarone 200 MG TAB PO SCH (09:00)
== END 2022-11-20 12:57 | disposition home or self-care (01) | DRG 291 ==
LOC: ERS 09:29 → IMCU/EMU 11:52 → MSONC 11-19 19:08
PROVIDERS: ADMIT Internal Medicine; ATTEND Internal Medicine
DX: I13.0 Hypertensive heart and chronic kidney disease with heart failure and stage 1 through stage 4 chronic kidney disease, or unspecified chronic kidney disease (principal); I50.23 Acute on chronic systolic (congestive) heart failure; J96.01 Acute respiratory failure with hypoxia; J96.02 Acute respiratory failure with hypercapnia; J44.1 Chronic obstructive pulmonary disease with (acute) exacerbation; E87.20 Acidosis, unspecified; N17.9 Acute kidney failure, unspecified; E78.00 Pure hypercholesterolemia, unspecified; F17.210 Nicotine dependence, cigarettes, uncomplicated; I25.10 Atherosclerotic heart disease of native coronary artery without angina pectoris; N18.2 Chronic kidney disease, stage 2 (mild); I48.91 Unspecified atrial fibrillation; Z79.82 Long term (current) use of aspirin; Z79.899 Other long term (current) drug therapy; Z79.01 Long term (current) use of anticoagulants
CPT/HCPCS: 36415; 36600; 71045; 80048; 80053; 81003; 81015; 82553; 82805; 83605; 83735; 83880; 84484; 85025; 87040; 94640; 94660; J0692; J1940; J1956; J2920; J3475; J3490; J7611; J7620

== ENCOUNTER 2022-11-21 17:03 | Inpatient (IN) | payer OTHER ==
[2022-11-21 17:25] LABS: #Lymphocytes 0.7 thou/uL (1.20-3.40); #Monocytes 1.8 thou/uL (0.11-0.59); #Neutrophils 12.2 thou/uL (1.40-6.50); %Basophils 0.3 % (0.0-1.0); %Eosinophils 0.2 % (0.0-10.0); %Lymphocytes 4.8 % (21.0-51.0); %Monocytes 11.8 % (0.0-10.0); %Neutrophils 82.9 % (42.0-75.0); Mean Corpuscular HGB CONC 33.7 g/dL (32.0-36.0); Mean Corpuscular Hemoglobin 33.8 pg (27.0-31.0); Mean Platelet Volume 10.8 fL (7.4-10.4); Platelet Count 149 10x3/uL (130-400); RBC Distribution Width 12.6 % (11.5-14.5); Red Blood Cell (RBC) Count 4.74 mill/uL (4.70-6.10); White Blood Cell (WBC) Count 14.8 10x3/uL (4.8-10.8)
[2022-11-21 17:26] LABS: Bacteria/HPF None Seen HPF (None Seen); Bilirubin Negative (Negative); Blood, Urine 3+ (Negative); Clarity Clear (Clear); Glucose, Urine (Dipstick) 200 mg/dL (Negative); Ketone, Urine Trace mg/dL (Negative); Leukocyte Negative Leu/uL (Negative); Nitrite Negative (Negative); Protein, Urine (Dipstick) 70 mg/dL (Neg-Trace); Specific Gravity, Urine 1.021 (1.002-1.036); Squamous Epithelial 0-3 HPF (0-3); Urobilinogen Normal mg/dL (Less than 2); WBC/HPF 0-3 HPF (0-3); pH, Urine 6.5 (5.0-9.0)
[2022-11-21 17:30] LABS: INR-International Normal Ratio 1.1; PTT 24.2 sec (22.9-36.1); Prothrombin Time 14.5 sec (12.0-14.7)
[2022-11-21 17:48] LABS: ALT (SGPT) 17 U/L (8-55); AST (SGOT) 35 U/L (5-34); Albumin 3.2 g/dL (3.4-4.8); Alkaline Phosphatase 76 U/L (40-110); Anion Gap 13 mmol/L (10-20); BUN (Urea Nitrogen) 23 mg/dL (8.4-25.7); Calc. Creatinine Clearance 0 mL/min (70-130); Calcium 7.5 mg/dL (7.8-10.44); Carbon Dioxide 27 mmol/L (23-31); Chloride 102 mmol/L (98-107); Estimated GFR 83; Globulin 1.6 g/dL (2.4-3.5); Glucose 163 mg/dL (83-110); Potassium 3.6 mmol/L (3.5-5.1); Protein, Total 4.8 g/dL (5.8-8.1); Sodium 138 mmol/L (136-145)
[2022-11-21] MEDS ORDERED: EPINEPHrine 1 MG/10 ML Abboject SYRINGE ONE (17:59)
[2022-11-21] MEDS ORDERED: [UNRECOGNIZED DRUG - OTHER] IV SCH (18:00)
[2022-11-21] MEDS ORDERED: ADMIXTURE FEE IV SCH (18:00)
[2022-11-21] MEDS ORDERED: HUM PROTHROMBIN CPLX IV SCH (18:00)
[2022-11-21 18:01] LABS: Actual Bicarbonate (HCO3a) 31.7 mEq/L (22-28); Analyzer IN Cardio ER; Base Excess (BEa) 7.2 mEq/L (-2.0 to +3.0); CO2 Tension 43.6 mmHg (35.0-45.0); Calcium, Ionized (arterial) 1.13 mmol/L (1.12-1.30); Carboxyhemoglobin (COHb) 1.8 gm% (0.0-3.0); Hemoglobin (Hb) 17.6 g/dL (14.0-18.0); O2 Tension (PaO2), arterial 121.8 mmHg (> 60.0); Potassium - ABG Lab 2.98 mmol/L (3.70-5.30); pH, Arterial 7.48 (7.35-7.45)
[2022-11-21] MEDS ORDERED: hydrALAZINE 20 MG/ML VIAL SLOW IVP PRN (18:04)
[2022-11-21] MEDS ORDERED: Dextrose 5% in Water 1,000 ML IV PRN (18:04)
[2022-11-21] MEDS ORDERED: Ondansetron PF 4 MG/2 ML Vial IVP PRN (18:04)
[2022-11-21] MEDS ORDERED: Morphine 2 MG/ML VIAL SLOW IVP PRN (18:04)
[2022-11-21] MEDS ORDERED: Dextrose 50% Abboject 50 ML SYRINGE SLOW IVP PRN (18:04)
[2022-11-21] MEDS ORDERED: HUM PROTHROMBIN CPLX(PCC)4FACT 2,248 UNIT in Admixture Fee 1 EACH IV SCH (18:15)
[2022-11-21] MEDS ORDERED: Sodium Chloride 0.9% 1,000 ML IV SCH (18:15)
[2022-11-21] MEDS ORDERED: Hydrocortisone Sod Succ/PF 100 mg/2 ml Vial IVP SCH (18:30)
[2022-11-21 18:42] LABS: Puncture Site LRA
[2022-11-21] MEDS ORDERED: Calcium Chloride 1 GM/10 ML Abboject SYRINGE ONE (18:52)
[2022-11-21 19:12] LABS: SARS-CoV-2 NAA Rapid Test Not Detected (NotDetected)
[2022-11-21] MEDS ORDERED: Levothyroxine Sodium 400 MCG in Sodium Chloride 0.9% 100 ML IVPB SCH (19:45)
[2022-11-21 21:23] LABS: Actual Bicarbonate (HCO3a) 29.3 mEq/L (22-28); Base Excess (BEa) 5.7 mEq/L (-2.0 to +3.0); CO2 Tension 39.1 mmHg (35.0-45.0); Carboxyhemoglobin (COHb) 1.8 gm% (0.0-3.0); Hemoglobin (Hb) 16.6 g/dL (14.0-18.0); O2 Tension (PaO2), arterial 105.2 mmHg (> 60.0); Potassium - ABG Lab 3.38 mmol/L (3.70-5.30); pH, Arterial 7.49 (7.35-7.45)
[2022-11-21 21:24] LABS: ALV-art Gradient 95.475 mmHg (0-20); Puncture Site LRA
[2022-11-21] MEDS: Sodium Chloride 0.9% 1,000 ML IV SCH (21:29)
[2022-11-21] MEDS: Famotidine/PF 20 mg/2ml Vial SLOW IVP SCH (21:40)
[2022-11-21] MEDS: Amiodarone 200 MG TAB PO SCH (21:40)
[2022-11-21] MEDS: Atorvastatin Calcium 10 MG TAB PO SCH (21:40)
[2022-11-22] MEDS: hydrALAZINE 20 MG/ML VIAL SLOW IVP PRN ×2 (00:41→06:11)
[2022-11-22] MEDS: Hydrocortisone Sod Succ/PF 100 mg/2 ml Vial IVP SCH ×3 (01:03→17:38)
[2022-11-22 05:54] LABS: Mean Corpuscular HGB CONC 33.1 g/dL (32.0-36.0); Mean Corpuscular Hemoglobin 34.1 pg (27.0-31.0); Mean Platelet Volume 10.7 fL (7.4-10.4); Platelet Count 101 10x3/uL (130-400); RBC Distribution Width 12.7 % (11.5-14.5); White Blood Cell (WBC) Count 13.5 10x3/uL (4.8-10.8)
[2022-11-22 06:02] LABS: PTT 24.4 sec (22.9-36.1); Prothrombin Time 13.6 sec (12.0-14.7)
[2022-11-22 06:20] LABS: ALT (SGPT) 15 U/L (8-55); AST (SGOT) 36 U/L (5-34); Albumin 3.4 g/dL (3.4-4.8); Alkaline Phosphatase 68 U/L (40-110); Bilirubin, Direct 0.5 mg/dL (0.1-0.3); Bilirubin, Total 1.4 mg/dL (0.2-1.2); Protein, Total 5.3 g/dL (5.8-8.1)
[2022-11-22 06:30] LABS: Band 9 % (5-11); Lymphocytes 5 % (21-51); MDiff Complete? YES; Monocytes 9 % (0-10); Neutrophil 77 % (42-75); Platelet Morphology Comment Appears Decreased
[2022-11-22 06:32] LABS: Anion Gap 19 mmol/L (10-20); BUN (Urea Nitrogen) 25 mg/dL (8.4-25.7); Calc. Creatinine Clearance 66 mL/min (70-130); Calcium 9.3 mg/dL (7.8-10.44); Carbon Dioxide 23 mmol/L (23-31); Chloride 100 mmol/L (98-107); Estimated GFR 70; Glucose 188 mg/dL (83-110); Magnesium 2.4 mg/dL (1.6-2.6); Phosphorus 3.4 mg/dL (2.3-4.7); Potassium 4.2 mmol/L (3.5-5.1); Sodium 138 mmol/L (136-145)
[2022-11-22] MEDS ORDERED: Carvedilol 3.125 MG TAB PO SCH (08:00)
[2022-11-22] MEDS: Ipratropium/Albuterol 3 ML NEB NEB SCH ×3 (08:09→18:26)
[2022-11-22] MEDS: Sodium Chloride 0.9% 1,000 ML IV SCH (08:28)
[2022-11-22] MEDS ORDERED: Levothyroxine Sodium 400 MCG, Admixture Fee 1 EACH in Sodium Chloride 0.9% 100 ML IVPB SCH (08:30)
[2022-11-22] MEDS: Amiodarone 200 MG TAB PO SCH ×2 (09:51→20:59)
[2022-11-22] MEDS: Famotidine/PF 20 mg/2ml Vial SLOW IVP SCH ×2 (09:51→20:57)
[2022-11-22 12:48] VITALS: BMI 24.6
[2022-11-22] MEDS ORDERED: Scopolamine 1.5 mg/72 hour Patch TD SCH (15:00)
[2022-11-22] MEDS: HumaLOG 300 UNITS/3 ML VIAL SC PRN (20:55)
[2022-11-22] MEDS: Atorvastatin Calcium 10 MG TAB PO SCH (20:58)
[2022-11-23] MEDS: Sodium Chloride 0.9% 1,000 ML IV SCH ×2 (00:15→11:14)
[2022-11-23] MEDS: Hydrocortisone Sod Succ/PF 100 mg/2 ml Vial IVP SCH ×2 (02:51→09:30)
[2022-11-23] MEDS: HumaLOG 300 UNITS/3 ML VIAL SC PRN (04:42)
[2022-11-23] MEDS: hydrALAZINE 20 MG/ML VIAL SLOW IVP PRN ×2 (04:48→06:39)
[2022-11-23] MEDS: Ipratropium/Albuterol 3 ML NEB NEB SCH (07:07)
[2022-11-23] MEDS: Famotidine/PF 20 mg/2ml Vial SLOW IVP SCH (09:30)
[2022-11-23] MEDS: Amiodarone 200 MG TAB PO SCH (09:30)
[2022-11-23 10:17] VITALS: TEMP 97.9
[2022-11-23 10:18] VITALS: BP 123/65
[2022-11-23] MEDS ORDERED: Sodium Chloride 0.9% 1,000 ML IV SCH (10:45)
[2022-11-23] MEDS ORDERED: LORazepam 2 MG/ML SYR.(CARPUJECT) IVP PRN (12:51)
[2022-11-23] MEDS ORDERED: Morphine 4 MG/ML VIAL SLOW IVP PRN (12:53)
[2022-11-30] MEDS ORDERED: Amiodarone 200 MG TAB PO SCH (09:00)
== END 2022-11-23 12:54 | disposition hospice, inpatient (51) | DRG 82 ==
LOC: ERS 17:03 → ERHOLD 18:09 → CCU 20:16
PROVIDERS: ADMIT Surgery; ATTEND Surgery
PROC: 3E033XZ Introduction of Vasopressor into Peripheral Vein, Percutaneous Approach (ICD-10-PCS; principal; 2022-11-21)
PROC: 30233J1 Transfusion of Nonautologous Serum Albumin into Peripheral Vein, Percutaneous Approach (ICD-10-PCS; 2022-11-21)
PROC: 0BH17EZ Insertion of Endotracheal Airway into Trachea, Via Natural or Artificial Opening (ICD-10-PCS; 2022-11-21)
PROC: 5A1945Z Respiratory Ventilation, 24-96 Consecutive Hours (ICD-10-PCS; 2022-11-21)
PROC: 0DH67UZ Insertion of Feeding Device into Stomach, Via Natural or Artificial Opening (ICD-10-PCS; 2022-11-21)
DX: S06.5X9A Traumatic subdural hemorrhage with loss of consciousness of unspecified duration, initial encounter (principal); J96.01 Acute respiratory failure with hypoxia; G91.9 Hydrocephalus, unspecified; I13.0 Hypertensive heart and chronic kidney disease with heart failure and stage 1 through stage 4 chronic kidney disease, or unspecified chronic kidney disease; Z66 Do not resuscitate; Z51.5 Encounter for palliative care; I25.10 Atherosclerotic heart disease of native coronary artery without angina pectoris; F17.210 Nicotine dependence, cigarettes, uncomplicated; R40.2432 Glasgow coma scale score 3-8, at arrival to emergency department; N18.9 Chronic kidney disease, unspecified; E11.22 Type 2 diabetes mellitus with diabetic chronic kidney disease; Z20.822 Contact with and (suspected) exposure to COVID-19; E78.00 Pure hypercholesterolemia, unspecified; J44.9 Chronic obstructive pulmonary disease, unspecified; I50.9 Heart failure, unspecified; E78.5 Hyperlipidemia, unspecified; W18.30XA Fall on same level, unspecified, initial encounter; Z79.01 Long term (current) use of anticoagulants; Z98.890 Other specified postprocedural states; Z79.899 Other long term (current) drug therapy; Z79.82 Long term (current) use of aspirin
CPT/HCPCS: 36415; 36416; 36600; 70450; 71045; 72125; 80048; 80053; 80076; 81003; 81015; 82533; 82805; 83605; 83735; 83880; 84100; 85025; 85610; 85730; 87040; 87086; 93005; 94002; 94003; 94640; 96365; 96375; G0390; J0171; J0360; J1720; J1815; J7050; J7168; J7620; P9045; S0028; U0002

== ENCOUNTER 2022-11-23 12:56 | Inpatient (IN) | payer OTHER ==
[2022-11-23] MEDS ORDERED: Morphine 4 MG/ML VIAL SLOW IVP PRN ×2 (13:43→13:44)
[2022-11-23] MEDS ORDERED: Morphine 4 MG/ML VIAL SLOW IVP SCH (13:45)
[2022-11-23] MEDS ORDERED: diphenhydrAMINE 50 MG/ML VIAL IVP PRN (13:45)
[2022-11-23] MEDS ORDERED: Acetaminophen 650 MG Suppository PR PRN ×2 (13:45→14:00)
[2022-11-23] MEDS ORDERED: Lorazepam 2 MG/ML VIAL SLOW IVP SCH (13:45)
[2022-11-23] MEDS ORDERED: Scopolamine 1.5 mg/72 hour Patch TOP PRN (13:45)
[2022-11-23] MEDS ORDERED: Lorazepam 2 MG/ML VIAL SLOW IVP PRN ×2 (13:45)
== END 2022-11-23 14:52 | disposition expired | DRG 951 ==
LOC: CCU 12:56
PROVIDERS: ADMIT Family Medicine; ATTEND Family Medicine
DX: Z51.5 Encounter for palliative care (principal); S06.5XAA Traumatic subdural hemorrhage with loss of consciousness status unknown, initial encounter; J96.00 Acute respiratory failure, unspecified whether with hypoxia or hypercapnia; I50.9 Heart failure, unspecified; J44.9 Chronic obstructive pulmonary disease, unspecified; I25.10 Atherosclerotic heart disease of native coronary artery without angina pectoris; W19.XXXA Unspecified fall, initial encounter; Z79.01 Long term (current) use of anticoagulants; Y92.9 Unspecified place or not applicable
CPT/HCPCS: 93005; J2060; J2270